=== PATIENT | male | born 1970 | race Caucasian/White ===

== ENCOUNTER 2024-10-15 08:21 | Outpatient (CLI) | payer OTHER, SELFPAY ==
--- OUTSIDE RECORDS SUMMARY | 2024-10-15 08:28 | XMS_ITS | Encounter Summary ---
Author Organization [facility] Healthcare Address [address] [place] [address] Care Team Providers Care Demonstrator Sewing Techniques Name Role Phone Chan Negrete MD Primary Care Provider [phone] Marion Chowdhury MD Unavailable [phone] Damon Dhaliwal MD Unavailable [phone] August Bernardo MD Unavailable [phone] Valeri Middleton NP Unavailable [phone] Encounter Details Date Type Department Care Team (Late st Contact Info) Description 06/28/2022 O[facility] Advanced Medicine Radiation Oncology [address] [facility] [place] [address] Damon Dhaliwal MD [address] DEPT RADIATION ONCOLOGY [place], [place] [address] Social History Tobacco Use Types Packs/Day Years Used Date Smoking Tobacco: Former Cigarettes 0.3 42 0 03/1976 - 03/2018 Smokeless Tobacco: Never Humiliation, Afraid, Rape, and Kick questionnair e Answer Date Recorded Within the last year, have y ou been afraid of your partner or ex-partner? No 04/07/2022 Within the last year, have y ou been humiliated or emotionally abused in other ways by your partner or ex-partner? No Within the last year, have y ou been kicked, hit, slapped, or otherwise physically hurt by your partner or ex-partner? No 04/07/2022 Within the last year, have y ou been raped or forced to have any kind of sexual activity by your partner or ex-partner? No 04/07/2022 Social Connection and Isolation Panel Answer Date Recorded In a typical week, how many times do you talk on the phone with family, friends, or neighbors? More than three times a week 04/07/2022 How often do you get togethe r with friends or relatives? Once a week 04/07/2022 How often do you attend chur or episcopal services? Never 04/07/2022 Do you belong to any clubs o r organizations such as episcopalian groups, unions, fraternal or athletic groups, or school groups? No 04/07/2022 How often do you attend meet ings of the clubs or organizations you belong to? Never 04/07/2022 Are you , , di vorced, , never , or living with a partner? 04/07/2022 AUDIT-C Answer Date Recorded Q1: How often do you have a drink containing alcohol? Never 04/07/2022 Q2: How many drinks containi ng alcohol do you have on a typical day when you are drinking? Patient does not drink Q3: How often do you have si x or more drinks on one occasion? Never 04/07/2022 Overall Financial Resource Strain (CARDIA) Answe r Date Recorded How hard is it for you to pa y for the very basics like food, housing, medical care, and heating? Not hard at all 04/07/2022 [facility] - Occupational Stress Questionnaire Answer Date Recorded Do you feel stress - tense, restless, nervous, or anxious, or unable to sleep at night because your mind is troubled all the time - these days? Only a little 04/07/2022 Exercise Vital Sign Answer Date Recorde d On average, how many days pe r week do you engage in moderate to strenuous exercise (like a brisk walk)? 0 days 04/07/2022 On average, how many minutes do you engage in exercise at this level? 0 min 04/07/2022 Hunger Vital Sign Answer Date Recorded Within the past 12 months, y ou worried that your food would run out before you got the money to buy more. Never true 04/07/19 23 Within the past 12 months, t he food you bought just didn't last and you didn't have money to get more. Never true 04/07/2022 PRAPARE - Transportation Answer Date Re corded In the past 12 months, has l ack of transportation kept you from medical appointments or from getting medications? No 03/2022 In the past 12 months, has l ack of transportation kept you from meetings, work, or from getting things needed for daily living? No 04/07/2022 Education Answer Date Recorded What is the highest level of school you have completed or the highest degree you have received? 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 Not on file Not on file documented as of this encounter Plan of Treatment Not on file documented as of this encounter Visit Diagnoses Not on filedocumented in this encounter Care Teams Demonstrator Sewing Techniques Relationship Specialty Start Date End Date Chan Negrete MD PCP - General Family Medicine 01/08/22 Marion Chowdhury MD Medical Oncologist/Marble Setter Helper Medical Oncology 02/15/22 Damon Dhaliwal MD Radiation Oncologist Radiation Oncology 04/07/22 August Bernardo MD [address] [facility] [address] [place] [address] Radiation Oncologist Radiation Oncology 07/01/22 Valeri Middleton NP [address] [place] [address] Nurse Practitioner Nurse Practitioner 11/11/22 documented as of this encounter
--- OUTSIDE RECORDS SUMMARY | 2024-10-15 08:28 | XMS_ITS | Encounter Summary ---
Author Organization [facility] Address [address] [place] [address] Care Team Providers Care Repertoire Manager Name Role Phone Sacha Chaves MD Primary Care Provider [phone] Chan Negrete MD Primary Care Provider [phone] Encounter Details Date Type Department Care Team (Late st Contact Info) Description 03/21/2020 Prep for Procedure [facility] Pre-[place] [address] Kip Payne MD [address] [place], [place] [id number] Social History Tobacco Use Types Packs/Day Years Used Date Smoking Tobacco: Former Cigarettes 0.5 1 1 03/18/2018 - 01/17/2020 Smokeless Tobacco: Never Alcohol Use Standard Drinks/Week Comments Yes 23.3 (1 standard drink = 0.6 oz pure alcohol) Sex and Gender Information Value Date Recorded Sex Assigned at Not on file Legal Sex Male 9:51 PM VETERINARY PHARMACOLOGIST Gender Identity Male 04/03/2021 8:46 AM VETERINARY PHARMACOLOGIST Sexual Orientation Not on file COVID-19 Exposure Response Date Recorded In the last month, have you been in contact with someone who was confirmed or suspected to have Coronavirus / COVID-19? No / Unsure 03/24/2020 5:39 AM VETERINARY PHARMACOLOGIST documented as of this encounter Functional Status documented as of this encounter Mental Status * Question Answer Entry Date Author Status Because of a physical, mental, or emotional condition, do you have serious difficulty concentrating, remembering, or making decisions? No 03/24/2020 4:00 PM VETERINARY PHARMACOLOGIST Haydee Tony RN Active documented in this encounter Plan of Treatment Not on file documented as of this encounter Results * PRE-SURGICAL/PRE-PROCEDURE CORONAVIRUS (COVID 19) (03/21/2020 11:03 AM VETERINARY PHARMACOLOGIST) CORONAVIRUS SARS COV 2 PCR (RESP) NOT DETECTED NOT DETECTED 03/22/2020 12:36 PM VETERINARY PHARMACOLOGIST [facility] Comment: A Not Detected (negative) test result for this test means that SARS- CoV-2 RNA was not present in the specimen above the limit of detection. A negative result does not rule out the possibility of COVID-19 and should not be used as the sole basis for treatment or patient management decisions. If COVID-19 is still suspected, based on exposure history together with other clinical findings, re-testing should be considered in consultation with public health authorities. Laboratory test results should always be considered in the context of clinical observations and epidemiological data in making a final diagnosis and patient management decisions. Please review the Fact Sheets and FDA authorized labeling available for health care providers and patients using the following websites: https://[email or web address] [email or web address]/home/Covid-19/HCP/NAAT/fact-sheet2 https://www.Pharmacy [email or web address]/home/Covid-19/Patients/NAAT/ fact-sheet2 This test has been authorized by the FDA under an Emergency Use Authorization (EUA) for use by authorized laboratories. Due to the current public health emergency, [facility] is receiving a high volume of samples from a wide variety of swabs and media for COVID-19 testing. In order to serve patients during this public health crisis, samples from appropriate clinical sources are being tested. Negative test results derived from specimens received in non-commercially manufactured viral collection and transport media, or in media and sample collection kits not yet authorized by FDA for COVID-19 testing should be cautiously evaluated and the patient potentially subjected to extra precautions such as additional clinical monitoring, including collection of an additional specimen. Methodology: Nucleic Acid Amplification Test (NAAT) includes RT-PCR or TMA Additional information about COVID-19 can be found at the [facility] website: [email or web address].com.InMyShow/Covid19. Test performed at [facility] [address] [place] [address] Director: ULI WYNNE DO,MPH FIRST TEST NO 03/21/2020 11:02 AM VETERINARY PHARMACOLOGIST [facility] EMPLOYED IN HEALTHCARE NO 03/21/2020 11:02 AM VETERINARY PHARMACOLOGIST [facility] SYMPTOMATIC DEFINED BY CDC NO 03/21/2020 11:02 AM VETERINARY PHARMACOLOGIST [facility] DATE OF SYMPTOM ONSET UNKNOWN 03/21/2020 11:05 AM VETERINARY PHARMACOLOGIST [facility] HOSPITALIZATION STATUS NO 03/21/2020 11:02 AM VETERINARY PHARMACOLOGIST [facility] PATIENT IN ICU NO 03/21/2020 11:02 AM VETERINARY PHARMACOLOGIST [facility] RESIDENT OF [facility] NO 03/21/2020 11:02 AM VETERINARY PHARMACOLOGIST [facility] NOT 03/21/2020 11:05 AM VETERINARY PHARMACOLOGIST [facility] PATIENT'S RACE WHITE OR 03/21/2020 11:02 AM VETERINARY PHARMACOLOGIST [facility] ETHNICITY NONHISPANIC 03/21/2020 11:02 AM VETERINARY PHARMACOLOGIST [facility] SOURCE (QST) NASOPHARYNGEAL SWAB 03/21/2020 11:02 AM VETERINARY PHARMACOLOGIST [facility] NASOPHARYNGEAL SWAB / Unknown 03/21/2020 11:03 AM VETERINARY PHARMACOLOGIST Kip Payne MD MICROBIOLOGY - GENERAL ORDERABLE S Final Result [facility] [place] [id number], [facility] [address] [place] [address], documented in this encounter Visit Diagnoses Diagnosis Preoperative testing- Primary Preoperative examination, unspecified documented in this encounter Additional Health Concerns Infection Onset Date Last Indicated Resolved Time COVID-19 Rule Out 03/21/2020 03/21/2020 03/22/2020 12:37 PM VETERINARY PHARMACOLOGIST COVID-19 Rule Out 03/27/2020 03/27/2020 03/27/2020 4:36 PM VETERINARY PHARMACOLOGIST COVID-19 Rule Out 03/29/2020 03/29/2020 03/29/2020 2:14 PM VETERINARY PHARMACOLOGIST documented as of this encounter Care Teams Repertoire Manager Relationship Specialty Start Date End Date Sacha Chaves MD [address] [place] [phone] PCP - General FAMILY PRACTICE 12/04/19 06/22/20 Chan Negrete MD [address] [place] [phone] PCP - General FAMILY PRACTICE 06/23/20 documented as of this encounter
--- OUTSIDE RECORDS SUMMARY | 2024-10-15 08:28 | XMS_ITS | Clinical Summary ---
Author Organization [facility] Address [address] [place] [address] Care Team Providers Care Business Development Consultant Name Role Phone Chan Negrete MD Primary Care Provider [phone] Marion Chowdhury MD Unavailable [phone] August Bernardo MD Unavailable [phone] Valeri Middleton NP Unavailable [phone] Allergies No known active allergies Medications simvastatin (ZOCOR) 40 mg tablet Take 40 mg by mouth daily 0 Active escitalopram (LEXAPRO) 20 mg tablet Take 20 mg by mouth daily 0 Active aspirin 81 mg enteric coated tablet Take 81 mg by mouth daily Active tadalafiL (CIALIS) 5 mg tablet Take 5 mg by mouth daily as needed for erectile dysfunction Active Active Problems Problem Noted Date Diagnosed Date Encounter for follow-up surveillance of prostate cancer 11/11/2022 Anxiety and depression 02/14/2022 Hyperlipidemia 02/14/2022 Hypertension 02/14/2022 Prostate cancer 02/04/2022 Cancer Staging:Clinical stage from 01/01/2020:Stage IIC(cT1c, cN0, cM0, PSA: 5, Grade Group: 3) - Signed by Baljinder Avalos MD on 04/02/2022 Pathologic stage from 03/24/2020:Stage IIC(pT2, pN0, cM0, PSA: 4, Grade Group: 3) - Signed by Baljinder Avalos MD on 04/02/2022 Surgical History Surgery Date Site/Laterality Comments PROSTATECTOMY Medical History Medical History Date Comments Hypercholesteremia Sleep apnea Family History Medical History Relation Name Comments Colon cancer Father Lymphoma Father Lung cancer Mother Prostate cancer Paternal cousin Relation Name Status Comments Father Mother Paternal cousin Alive Social History Tobacco Use Types Packs/Day Years Used Date Smoking Tobacco: Former Cigarettes 0.3 42 0 03/1976 - 03/2018 Smokeless Tobacco: Never Tobacco Cessation:Counseling Given: Not Answered Humiliation, Afraid, Rape, and Kick questionnair e [...] How often do you attend chur or zoroastrian services? Never 04/07/2022 Do you belong to any clubs o r organizations such as evangelical groups, unions, fraternal or athletic groups, or [...] and heating? 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 Not on file Not on file Obstetrics History Last Filed Vital Signs Vital Sign Reading Time Taken Comments Blood Pressure 131/74 05/05/2022 12:45 PM RETIREMENT CONSULTANT Pulse 38 05/05/2022 12:45 PM RETIREMENT CONSULTANT Temperature 36.7 C (98.1 F) 04/07/2022 1:07 PM RETIREMENT CONSULTANT Respiratory Rate 16 04/07/2022 1:07 PM RETIREMENT CONSULTANT Oxygen Saturation 98% 05/05/2022 12:45 PM RETIREMENT CONSULTANT Inhaled Oxygen Concentration - - Weight 111.4 kg (245 lb 8 oz) 06/26/2024 1:58 PM CDT Height 170.3 cm (5' 7.05) 06/26/2024 1:58 PM CD T Body Mass Index 38.4 06/26/2024 1:58 PM CDT Plan of Treatment Health Maintenance Due Date Last Done Comments Colon Cancer Screening-Colonoscopy 1968 Depression Screening 1968 Hepatitis C Screening 1968 Hepatitis B Screening 1986 Regular Well Visit/Exam 18-64 1986 Zoster Vaccine (1 of 2) 2018 Covid-19 Vaccine (2 - 2023-2 5 season) 2023 05/23/2020 Prostate Cancer Screening-PSA 02/16/2024 02/15/2022 Influenza Vaccine (#1) 2024 3, 12/04/2010 DTaP/Tdap/Td Vaccine (2 - Td or Tdap) 12/22/2024 12/22/2014 Pneumococcal vaccine <65 Aged Out No longer eligible based on patient's age to complete this topic Procedures Procedure Name Priority Date/Time Associated Diagnosis Comments PSA DIAGNOSTIC Routine 02/15/2022 2:23 PM RETIREMENT CONSULTANT Prostate cancer (HCC) from Last 3 Months or Most Recently Relevant to Health Maintenance Results * PSA diagnostic (02/15/2022 2:23 PM RETIREMENT CONSULTANT) PSA-Total 0.51 <=3.90 ng/mL [facility] Comment: Interpretive Data AGE SEX REFERENCE INTERVAL 0 minutes-150 years Female None 0 minutes-49 years Male None 50-59 years Male 0-3.90 60-69 years Male 0-5.40 70-79 years Male 0-6.20 80-150 years Male 0-6.20 The Hansel PSA Total assay procedure was used. Results from different manufacturers or methods may not be comparable. Serial testing should be performed using the same method. Current interpretive data last revised 21. Blood 02/15/2022 2:23 PM RETIREMENT CONSULTANT 02/15/2022 2:49 PM RETIREMENT CONSULTANT us Marion Chowdhury MD LAB BLOOD ORDERABLES F inal Result [facility] Department of [place] [address] from Last 3 Months or Most Recently Relevant to Health Maintenance Insurance [employer] Care Teams Business Development Consultant Relationship Specialty Start Date End Date Chan Negrete MD PCP - General Family Medicine 01/08/22 Marion Chowdhury MD Medical Oncologist/Other Sports Coach Or Instructor Medical Oncology 02/15/22 August Bernardo MD [address] [place] [address] Radiation Oncologist Radiation Oncology 07/01/22 Valeri Middleton NP [address] [place] [address] Nurse Practitioner Nurse Practitioner 11/11/22
--- OUTSIDE RECORDS SUMMARY | 2024-10-15 08:28 | XMS_ITS ---
Author Organization [facility] Address [address] [place] [address] Care Team Providers Care Composite Engineer Name Role Phone Chan Negrete MD Primary Care Provider [phone] Marion Chowdhury MD Unavailable [phone] August Bernardo MD Unavailable [phone] Valeri Middleton NP Unavailable [phone] Active Problems Problem Noted Date Diagnosed Date [...] Signed by Baljinder Avalos MD on 04/02/2022 Current Treatment and Therapy Plans Eligard Injection - 45 mg every 24 weeks* Plan Start Date:04/16/2022 Plan Provider:Damon Dhaliwal MD Linked Problems Prostate cancer (HCC) Treatment Medications leuprolide (ELIGARD) Past Treatment and Therapy Plans No past plan information found. Radiation Treatments * Course C1 PROSTATE_NODE 05/19/2022 - 07/08/2022 Treatment Period Energy Fraction Dose Fractions Total Dose Plans Planned Prostate_VMAT 06/23/2022 - 07/08/2022 180 12 / 2,160 PROST_NODES 05/19/2022 - 06/22/2022 180 4,500 Reference Points Delivered [id number] 06/23/2022 - 07/08/2022 2,160 PROSTATE 05/19/2022 - 06/22/2022 4,500
--- OUTSIDE RECORDS SUMMARY | 2024-10-15 08:28 | XMS_ITS | Clinical Summary ---
Author Organization [facility] Address [address] [place] [address] Care Team Providers Care Titrator Name Role Phone Chan Negrete MD Primary Care Provider [phone] Allergies No known active allergies Medications simvastatin 40 MG tablet Take 40 mg by mouth daily. 12/11/2019 Active escitalopram 20 MG tablet Take 20 mg by mouth daily. 12/11/2019 Active lisinopril 10 MG tablet Take 10 mg by mouth daily. 02/04/2020 Active aspirin EC (ASPIRIN EC) 81 MG tablet Take 81 mg by mouth daily. Active Active Problems Problem Noted Date Diagnosed Date Postoperative abdominal pain with fever 04/01/19 21 S/P prostatectomy 03/29/2020 Liver lesion 03/29/2020 Malignant neoplasm of prostate ([facility]/HCC) 03/24/2020 Prostate cancer ([facility]) Overview (03/29/2020): DIAGNOSED JAN [address] ZARAGOZA Hypertension Hyperlipidemia Anxiety and depression Resolved Problems Problem Noted Date Diagnosed Date Resolved Date Post-operative infection 03/29/2020 Leukocytosis 03/27/2020 04/01/2020 Family History Medical History Relation Comments Heart Brother No Known Problems Daughter 1 No Known Problems Daughter 2 No Known Problems Daughter 3 Cancer Father colon and brain stem Heart Father Cancer Mother lung Heart Mother No Known Problems Sister Relation Status Comments Brother Daughter 1 Alive Daughter 2 Alive Daughter 3 Alive Father Mother Sister Alive Social History Tobacco Use Types Packs/Day Years Used Date Smoking Tobacco: Former Cigarettes 0.5 1 1 03/18/2018 - 01/17/2020 Smokeless Tobacco: Never Alcohol Use Standard Drinks/Week Comments Yes 23.3 (1 standard drink = 0.6 oz pure alcohol) Sex and Gender Information Value Date Recorded Sex Assigned at Not on file Legal Sex Male 9:51 PM CIVIL DIVISION COMMANDER DEPUTY SHERIFF Gender Identity Male 04/03/2021 8:46 AM CIVIL DIVISION COMMANDER DEPUTY SHERIFF Sexual Orientation Not on file Last Filed Vital Signs Vital Sign Reading Time Taken Comments Blood Pressure 131/73 04/01/2020 3:47 AM CIVIL DIVISION COMMANDER DEPUTY SHERIFF Pulse 70 04/01/2020 3:47 AM CIVIL DIVISION COMMANDER DEPUTY SHERIFF Temperature 37 C (98.6 F) 04/01/2020 3:47 AM CIVIL DIVISION COMMANDER DEPUTY SHERIFF Respiratory Rate 16 04/01/2020 3:47 AM CIVIL DIVISION COMMANDER DEPUTY SHERIFF Oxygen Saturation 99% 04/01/2020 3:47 AM CIVIL DIVISION COMMANDER DEPUTY SHERIFF Inhaled Oxygen Concentration - - Weight 95.3 kg (210 lb) 03/27/2020 12:59 PM CIVIL DIVISION COMMANDER DEPUTY SHERIFF Height 180.3 cm (5' 11) 03/27/2020 12:59 PM CIVIL DIVISION COMMANDER DEPUTY SHERIFF Body Mass Index 29.29 03/27/2020 12:59 PM CIVIL DIVISION COMMANDER DEPUTY SHERIFF Plan of Treatment Health Maintenance Due Date Last Done Comments Annual Physical 1971 Hepatitis C 1986 DTaP, Tdap and Td Vaccines ( 1 - Tdap) 1987 Hepatitis B Vaccines (1 of 3 - 19+ 3-dose series) 1987 Pneumococcal Vaccine: 50+ Years (1 of 1 - PCV) 2018 Zoster Vaccines (1 of 2) 2018 COVID-19 Vaccine (1 - 2023-2 5 season) 2023 Colorectal Cancer Screening Colonoscopy (10 Years) 02/13/2030 02/14/2020, 02/14/2020 Meningococcal B Vaccine Aged Out No l onger eligible based on patient's age to complete this topic Meningococcal Vaccine Aged Out No tyrell jessica eligible based on patient's age to complete this topic RSV Immunizations Under 20 Months Aged Out No longer eligible b ased on patient's age to complete this topic Procedures Procedure Name Priority Date/Time Associated Diagnosis Comments COLONOSCOPY Routine 02/14/2020 11:07 AM CIVIL DIVISION COMMANDER DEPUTY SHERIFF from Last 3 Months or Most Recently Relevant to Health Maintenance Results * Colonoscopy (02/14/2020 11:07 AM CIVIL DIVISION COMMANDER DEPUTY SHERIFF) Hector Copeland MD GI PROCEDURE ORDERABLES Final Re sult from Last 3 Months or Most Recently Relevant to Health Maintenance Insurance [facility] Advance Directives Documents on File Type Date Recorded Patient Statistical Clerk Expl anation Advance Directives and Living Will 03/27/2020 10:00 AM 03-25-2020 signed POA for HC * Full Code (Latest Code Status on File) Date Activated Date Inactivated Comments 03/27/2020 5:25 PM 04/01/2020 1:55 PM * Full Code Date Activated Date Inactivated Comments 03/24/2020 3:41 PM 03/25/2020 3:34 PM Care Teams Titrator Relationship Specialty Start Date End Date Chan Negrete MD [address] [place] [phone] PCP - General FAMILY PRACTICE 06/23/20
--- OUTSIDE RECORDS SUMMARY | 2024-10-15 08:28 | XMS_ITS | Encounter Summary ---
Author Organization [facility] Address [address] [place] [address] Care Team Providers Care Netbackup Admin Name Role Phone Sacha Chaves MD Primary Care Provider [phone] Chan Negrete MD Primary Care Provider [phone] Encounter Details Date Type Department Care Team (Late st Contact Info) Description 08/12/2018 Abstract [facility] CONVERSION [address] [place] [address] , Generic Conversion, Social History Tobacco Use Types Packs/Day Years Used Date Smoking Tobacco: Never Assessed Sex and Gender Information Value Date Recorded Sex Assigned at Not on file Legal Sex Male 9:51 PM EXTERNAL GRINDER TENDER Gender Identity Male 04/03/2021 8:46 AM EXTERNAL GRINDER TENDER Sexual Orientation Not on file documented as of this encounter Plan of Treatment Not on file documented as of this encounter Visit Diagnoses Not on filedocumented in this encounter Additional Health Concerns Infection Onset Date Last Indicated Resolved Time COVID-19 Rule Out 02/11/2020 02/11/2020 02/12/2020 7:27 PM EXTERNAL GRINDER TENDER COVID-19 Rule Out 03/21/2020 03/21/2020 03/22/2020 12:37 PM EXTERNAL GRINDER TENDER COVID-19 Rule Out 03/27/2020 03/27/2020 03/27/2020 4:36 PM EXTERNAL GRINDER TENDER COVID-19 Rule Out 03/29/2020 03/29/2020 03/29/2020 2:14 PM EXTERNAL GRINDER TENDER documented as of this encounter Care Teams Netbackup Admin Relationship Specialty Start Date End Date Sacha Chaves MD [address] [place] [address] PCP - General FAMILY PRACTICE 12/04/19 06/22/20 Chan Negrete MD [address] [place] [phone] PCP - General FAMILY PRACTICE 06/23/20 documented as of this encounter
--- OUTSIDE RECORDS SUMMARY | 2024-10-15 08:28 | XMS_ITS | Encounter Summary ---
Author Organization [facility] Address [address] [place] [address] Phone Care Team Providers Care Manager Ct Name Role Phone Chan Negrete MD Primary Care Provider Marion Chowdhury MD Unavailable [phone] Damon Dhaliwal MD Unavailable [phone] August Bernardo MD Unavailable [phone] Valeri Middleton NP Unavailable [phone] Encounter Details Date Type Department Care Team (Latest Contact Info) Description 03/22/2022 Orders Only [facility] Scanning, Provider Social History Tobacco Use Types Packs/Day Years Used Date Smoking Tobacco: Former Cigarettes 0.3 42 0 03/1976 - 03/2018 Smokeless Tobacco: Never Sex and Gender Information Value Date Recorded Sex Assigned at Not on file Legal Sex Male 9:25 AM CDT Gender Identity Not on file Sexual Orientation Not on file documented as of this encounter Plan of Treatment Not on file documented as of this encounter Procedures Procedure Name Priority Date/Time Associated Diagnosis Comments SCAN - LABS 03/22/2022 documented in this encounter Results * SCAN - LABS (03/22/2022) us Provider Scanning Final Result documented in this encounter Visit Diagnoses Not on filedocumented in this encounter Care Teams Manager Ct Relationship Specialty Start Date End Date Chan Negrete MD PCP - General Family Medicine 01/08/22 Marion Chowdhury MD Medical Oncologist/Tool Machine Set Up Operator Medical Oncology 02/15/22 Damon Dhaliwal MD Radiation Oncologist Radiation Oncology 04/07/22 August Bernardo MD [address] [place] [address] Radiation Oncologist Radiation Oncology 07/01/22 Valeri Middleton NP [address] [place] [address] Nurse Practitioner Nurse Practitioner 11/11/22 documented as of this encounter
--- NOTE | 2024-10-25 11:23 | WPDHOLTEREM ---
Holter/Event Monitor Holter/Event Monitor Date of procedure: 10/15/24 Holter/Event Procedure: 3-7 Day Holter Monitor Indications: Bradycardia Conclusion: 1. 3 days holter monitor on 10/15/24. 2. Underlying rhythm is sinus rhythm. HR range 30-88 bpm; average HR 43 bpm. HR at 30 bpm was on 10/16/24 at 4:11 am. 3. There are rare premature supraventricular complexes and rare supraventricular couplets. No supraventricular tachycardia. 4. There are rare premature ventricular complexes. No ventricular tachycardia. 5. No significant pauses greater than 3 seconds. 6. No symptoms available for correlation.
== END 2024-10-15 08:22 | disposition home or self-care (01) ==
PROVIDERS: PCP Physician Assistant; Visit Provider Physician Assistant
DX: R00.1 Bradycardia, unspecified (principal); R94.39 Abnormal result of other cardiovascular function study
CPT/HCPCS: 93242

== ENCOUNTER 2025-02-23 09:20 | Inpatient (IN) | payer OTHER, SELFPAY ==
[2025-02-23] VITALS (11 sets, daily range): BP systolic 118–166; BP diastolic 58–87; PULSE 49–62; RESP 12–22; TEMP 36.5–37.9; O2SAT 97–100; BMI 27.3
--- NOTE | ~2025-02-23 | CT_ITS ---
CT ABDOMEN AND PELVIS WITHOUT CONTRAST Clinical History: Kidney stone Comparison: None Technique: Unenhanced axial images lung bases to symphysis pubis Coronal, sagittal reformats CT images acquired with automatic exposure control for dose reduction DLP: 252 mGy-cm Findings: Without intravenous contrast, sensitivity for detecting visceral parenchymal abnormalities decreased. Lung bases: Clear. Visualized heart and pericardium: Unremarkable. Liver: Unremarkable. Gallbladder: Unremarkable. Spleen: Unremarkable. Pancreas: Unremarkable. Adrenal glands: Unremarkable. Kidneys: Right kidney- hydronephrosis. No renal stones. Left kidney- hydronephrosis. Tiny stone. Distal esophagus/stomach: Unremarkable. Small bowel loops: Normal caliber and wall thickness. Colon: A few diverticula. Normal caliber and wall thickness. Normal RLQ appendix. Nodes: No enlarged nodes. Peritoneum: No ascites. No free intraperitoneal air. Urinary bladder: Distended. Prostate: Removed. Bones: No acute bony abnormality. Soft tissues: Unremarkable. Unopacified abdominal aorta: No aneurysmal dilatation. IMPRESSION: 1. Distended urinary bladder with consequent bilateral hydronephrosis. Reviewed, dictated and finalized at location R. INSPECTOR
--- OUTSIDE RECORDS SUMMARY | 2025-02-23 09:22 | XMS_ITS | Encounter Summary ---
Author Organization [facility] Address [address] [place] [address] Phone Care Team Providers Care Engineering Administrator Name Role Phone Chan Negrete MD Primary Care Provider Marion Chowdhury MD Unavailable [phone] Damon Dhaliwal MD Unavailable [phone] August Bernardo MD Unavailable [phone] Valeri Middleton NP Unavailable [phone] Encounter Details Date Type Department Care Team [...] on filedocumented in this encounter Care Teams Engineering Administrator Relationship Specialty Start Date End Date Chan Negrete MD PCP - General Family Medicine 01/08/22 Marion Chowdhury MD Medical Oncologist/Concession Worker Medical Oncology 02/15/22 Damon Dhaliwal MD Radiation Oncologist Radiation Oncology 04/07/22 August Bernardo MD [address] [place] [address] Radiation Oncologist Radiation Oncology 07/01/22 Valeri Middleton NP [address] [place] [address] Nurse Practitioner Nurse Practitioner 11/11/22 documented as of this encounter
--- OUTSIDE RECORDS SUMMARY | 2025-02-23 09:22 | XMS_ITS | Encounter Summary ---
Author Organization [facility] Address [address] [place] [address] Care Team Providers Care Food Analyst Name Role Phone Chan Negrete MD Primary Care Provider [phone] Marion Chowdhury MD Unavailable [phone] Damon Dhaliwal MD Unavailable [phone] August Bernardo MD Unavailable [phone] Valeri Middleton NP Unavailable [phone] Encounter Details Date Type Department Care Team (Late st Contact Info) Description 06/28/2022 [facility] Advanced Medicine Radiation Oncology [address] [facility] [place] [address] Damon Dhaliwal MD [address] DEPT RADIATION ONCOLOGY [place], [place] [address] Social History Tobacco Use Types Packs/Day Years [...] How often do you attend chur or amish services? Never 04/07/2022 Do you belong to any clubs o r organizations such as cheondoism groups, unions, fraternal or athletic groups, or [...] and heating? 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 Not on file Not on file documented as of this encounter Plan of Treatment Not on file documented as of this encounter Visit Diagnoses Not on filedocumented in this encounter Care Teams Food Analyst Relationship Specialty Start Date End Date Chan Negrete MD PCP - General Family Medicine 01/08/22 Marion Chowdhury MD Medical Oncologist/Janitor Head Medical Oncology 02/15/22 Damon Dhaliwal MD Radiation Oncologist Radiation Oncology 04/07/22 August Bernardo MD [address] [facility] [address] [place] [address] Radiation Oncologist Radiation Oncology 07/01/22 Valeri Middleton NP [address] [place] [address] Nurse Practitioner Nurse Practitioner 11/11/22 documented as of this encounter
--- OUTSIDE RECORDS SUMMARY | 2025-02-23 09:23 | XMS_ITS ---
Author Organization Unknown Address [address] [place], [place] [id number] Phone Care Team Providers Care Social Work Lecturer Name Role Phone BIENVENIDO BENJAMIN Attending Unavailable NO PCP Primary Unavailable Social History Type Status Start Date End Date Code Code Syst em Sex Male Hospital Discharge Instructions Should you have any questions prior to discharge, please contact a member of your healthcare team. If you have left the hospital and have any questions, please contact your primary care physician. Reason For Referral No Data Found Plan of Treatment No Data Found Encounters Encounter Diagnosis Start Date Code Code Sys tem Bradycardia, unspecified 11/27/2024 [facility] Personal Care Team Section
--- OUTSIDE RECORDS SUMMARY | 2025-02-23 09:23 | XMS_ITS ---
Author Organization [facility] Address [address] [place] [address] Care Team Providers Care Ski Maker Wood Name Role Phone Chan Negrete MD Primary Care Provider [phone] Marion Chowdhury MD Unavailable [phone] August Bernardo MD Unavailable [phone] Valeri Middleton NP Unavailable [phone] Active Problems Problem Noted Date Diagnosed Date [...]
--- OUTSIDE RECORDS SUMMARY | 2025-02-23 09:23 | XMS_ITS | Clinical Summary ---
Author Organization [facility] Address [address] [place] [address] Care Team Providers Care It Desktop Support Specialist Name Role Phone Chan Negrete MD Primary Care Provider [phone] Marion Chowdhury MD Unavailable [phone] August Bernardo MD Unavailable [phone] Valeri Middleton NP Unavailable [phone] Allergies No known active allergies Medications simvastatin (ZOCOR) 40 mg tablet Take 40 mg by mouth daily 0 Active escitalopram (LEXAPRO) 20 mg tablet Take 20 mg by mouth daily 0 Active aspirin 81 mg enteric coated tablet Take 81 mg by mouth daily Active tadalafiL (CIALIS) 5 mg tablet Take 1 tablet (5 mg total) by mouth daily as needed for erectile dysfunction 90 tablet 3 5 Active tadalafiL (ADCIRCA) 10 mg tablet Take 1 tablet (10 mg total) by mouth daily as needed for erectile dysfunction 90 tablet 1 5 Active Active Problems Problem Noted Date Diagnosed [...] Signed by Baljinder Avalos MD on 04/02/2022 Encounters Date Type Department Care Team Description 01/02/2025 2:20 PM CDT Office Visit [facility] Advanced Medicine Radiation Oncology [address] [facility] [place] [address] Valeri Middleton NP Prostate cancer (HCC) (Primary Dx); Encounter for follow-up surveillance of prostate cancer from Last 3 Months Surgical History Surgery Date Site/Laterality Comments PROSTATECTOMY [...] 03/2018 Smokeless Tobacco: Never Tobacco Cessation:Counseling Given: No Humiliation, Afraid, Rape, and Kick questionnair e [...] 04/07/2022 How often do you attend chur ch or sikhism services? Never 04/07/2022 Do you belong to any clubs o r organizations such as mu-ism groups, unions, fraternal or athletic groups, or [...] and heating? 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 on file Not on file Last Filed Vital Signs Vital Sign Reading Time Taken Comments Blood Pressure 131/74 05/05/2022 12:45 PM ROOF CEMENT AND PAINT MAKER HELPER Pulse 38 05/05/2022 12:45 PM ROOF CEMENT AND PAINT MAKER HELPER Temperature 36.7 C (98.1 F) 04/07/2022 1:07 PM ROOF CEMENT AND PAINT MAKER HELPER Respiratory Rate 16 04/07/2022 1:07 PM ROOF CEMENT AND PAINT MAKER HELPER Oxygen Saturation 98% 05/05/2022 12:45 PM ROOF CEMENT AND PAINT MAKER HELPER Inhaled Oxygen Concentration - - Weight 93 kg (205 lb) 01/02/2025 2:18 PM CDT Height 170.3 cm (5' 7.05) 01/02/2025 2:18 PM CD T Body Mass Index 32.06 01/02/2025 2:18 PM CDT Plan of Treatment Health Maintenance Due Date Last Done Comments Colon Cancer Screening-Colonoscopy 1968 Depression Screening 1968 Hepatitis C Screening 1968 Hepatitis B Screening 1986 Regular Well Visit/Exam 18-64 1986 Zoster Vaccine (1 of 2) 2018 Prostate Cancer Screening-PSA 02/16/2024 02/15/2022 Covid-19 Vaccine (2 - 2024-2 6 season) 2024 05/23/2020 Influenza Vaccine (#1) 2024 3, 12/04/2010 DTaP/Tdap/Td Vaccine (2 - Td or Tdap) 12/22/2024 12/22/2014 Pneumococcal vaccine <65 Aged Out No longer eligible based on patient's age to complete this topic Procedures Procedure Name Priority Date/Time Associated Diagnosis Comments PSA DIAGNOSTIC Routine 02/15/2022 2:23 PM ROOF CEMENT AND PAINT MAKER HELPER Prostate cancer (HCC) from Last 3 Months or Most Recently Relevant to Health Maintenance Results * PSA diagnostic (02/15/2022 2:23 PM ROOF CEMENT AND PAINT MAKER HELPER) PSA-Total 0.51 <=3.90 ng/mL [facility] Comment: Interpretive Data AGE SEX REFERENCE INTERVAL [...] last revised 21. Blood 02/15/2022 2:23 PM ROOF CEMENT AND PAINT MAKER HELPER 02/15/2022 2:49 PM ROOF CEMENT AND PAINT MAKER HELPER us Marion Chowdhury MD LAB BLOOD ORDERABLES F inal Result [facility] Department [place] [address] from Last 3 Months or Most Recently Relevant to Health Maintenance [facility] [employer] Care Teams It Desktop Support Specialist Relationship Specialty Start Date End Date Chan Negrete MD PCP - General Family Medicine 01/08/22 Marion Chowdhury MD Medical Oncologist/Ropeman Medical Oncology 02/15/22 August Bernardo MD [address] [place] [address] Radiation Oncologist Radiation Oncology 07/01/22 Valeri Middleton NP [address] [place] [address] Nurse Practitioner Nurse Practitioner 11/11/22
--- NOTE | 2025-02-23 10:15 | ED_ITS ---
HPI - General Adult General Chief complaint: Urogenital-Male Stated complaint: bladder infection Time Seen by Provider: 02/23/25 10:14 Source: patient Mode of arrival: ambulatory Limitations: no limitations History of Present Illness HPI narrative: 54 years old white male came to the ED by private car from home with his complaining of frequent urination with burning sensation started 3 weeks ago associated with lower back pain. Finish a course of micro bed without improvement, started on Bactrim 3 days ago without improvement. Feeling hot intermittently with nausea. History of prostatic cancer status post surgery 2020, last radiation therapy 2 years ago. History of hyperlipidemia, anxiety and depression currently on baby aspirin. Related Data Allergies Allergy/AdvReac Type Severity Reaction Status Date / Time No Known Allergies Allergy Verified 02/23/25 09:42 Review of Systems 2 Review of Systems: All systems reviewed & are unremarkable except as noted in HPI and below Exam 2 Narrative: General appearance: Well-developed, well-nourished Skin: Normal color Head: Normocephalic, nontraumatic Eyes: Clear conjunctiva ENT: Oropharynx normal, ears normal, nose normal Neck: Supple, nontender Chest and respiratory: Airway patent, no respiratory distress, no accessory muscle use Heart: Regular rate/rhythm Abdomen: Soft, nontender, no organomegaly, quiet bowel sounds Vascular: Normal peripheral pulses, normal capillary refill. Musculoskeletal: Mild diffuse tenderness across the lower back, no bruises, no rash or swelling Neurologic: Alert and oriented ?3, PREMIX CONCRETE BATCHER is normal as tested, no gross motor deficit Course Consultations Urology: Time of Consult: 11:53 I have discussed the care of this patient with the following provider: DR HENLEY Vital Signs Vital signs: Vital Signs Temperature 36.6 C 02/23/25 09:35 Pulse Rate 62 02/23/25 09:35 Respiratory Rate 18 02/23/25 09:35 Blood Pressure 138/74 02/23/25 09:35 Pulse Oximetry 100 02/23/25 09:35 Oxygen Delivery Room Air 02/23/25 09:35 Temperature 36.6 C 02/23/25 09:35 Pulse Rate 49 L 02/23/25 10:57 Respiratory Rate 14 02/23/25 10:57 Blood Pressure 127/82 02/23/25 10:57 Pulse Oximetry 100 02/23/25 10:57 Oxygen Delivery Room Air 02/23/25 09:35 MDM MDM Narrative Medical decision making narrative: Patient presents with frequent urination for 3 weeks failed outpatient treatment time to Vital signs are stable Physical examination: Unremarkable Differential diagnosis urinary tract infection pyelonephritis, cystitis secondary to radiation, electrolyte imbalance, dehydration Blood workup today includes CBC, CMP, lipase showed creatinine 1.3 Urinalysis positive for infection CT abdomen and pelvis without contrast showed bilateral hydronephrosis and distended urinary bladder Diagnosis urinary tract infection, possible obstructive uropathy Admit to hospitalist Consult urologist Started on Rocephin in the ED RYAN CATHETER PLACED Differential Diagnosis Differential Diagnosis: As above Medical Records I have reviewed the following patient records and this information was taken into consideration when formulating the assessment and plan.: previous labs, previous ER visits and previous hospitalizations Lab Data [facility] Lab Attestation statement: I personally reviewed the patient's lab results. 02/23/25 10:54 02/23/25 10:54 Labs: Lab Results 02/23/25 02/23/25 Range/Units 10:22 10:54 WBC 10.0 (4.5-10.0) K/mm3 RBC 4.77 (4.6-6.20) M/mm3 Hgb 14.1 (14.0-18.0) g/dL Hct 44.1 (42.0-52.0) % MCV 92.5 (80-100) fl MCH 29.6 (26-34) pg MCHC 32.0 (32-36) g/dl RDW 13.1 (11.5-14.5) % Plt Count 266 (150-375) k/mm3 MPV 9.3 (7.4-10.4) fl Immature Gran % (Auto) 0.3 (0-0.5) % Neut % (Auto) 74.9 H (45.5-73.1) % Lymph % (Auto) 11.3 L (18.3-44.2) % [place] % (Auto) 12.2 H (2.6-8.5) % Eos % (Auto) 0.8 (0-4.4) % Baso % (Auto) 0.5 (0.2-1.2) % Lymph # (Auto) 1.12 (0.9-3.2) K/mm3 [place] # (Auto) 1.2 H (0.1-0.6) K/mm3 Eos # (Auto) 0.1 (0-0.3) K/mm3 Baso # (Auto) 0.1 (0.0-0.1) K/mm3 Abs Immat Gran (auto) 0.03 (0.00-0.031) K/mm3 Absolute Neuts (auto) 7.5 H (1.3-6.7) K/mm3 Absolute Nucleated RBC 0.000 (0.0-0.012) K/mm3 Nucleated RBC % 0.0 (0.0-0.2) % Sodium 138 (137-145) mmol/L Potassium 4.4 (3.4-5.0) mmol/L Chloride 104 (98-107) mmol/L Carbon Dioxide 27 (22-30) mmol/L Anion Gap 7 (4-12) mmol/L BUN 13 (9-20) mg/dL Creatinine 1.38 H (0.7-1.3) mg/dL Estim Creat Clear Calc 57 ml/min Estimated GFR 53 L (59 - ) Glucose 87 (65-110) mg/dL Calcium 9.2 (8.4-10.2) mg/dL Total Bilirubin 1.4 H (0.2-1.3) mg/dL AST 28 (17-59) U/L ALT 22 (6-50) U/L Alkaline Phosphatase 72 (38-126) U/L Total Protein 7.3 (6.3-8.2) g/dL Albumin 4.3 (3.5-5.1) g/dL Lipase 97 (23-300) U/L Urine Color Yellow (Yellow) Urine Appearance Turbid H (Clear) Urine pH 6.0 (5.0-9.0) Ur Specific [place] 1.010 (1.001-1.035) Urine Protein 1+ H (Negative) mg/dL Urine Glucose (UA) Negative (Negative) mg/dL Urine Ketones Negative (Negative) mg/dL Ur Blood (Man) 2+ H (Negative) Urine Nitrate Positive H (Negative) Urine Bilirubin Negative (Negative) Urine Urobilinogen 0.2 (<2.0) mg/dL Leukocyte Esterase Rfl 3+ H (Negative) VITO/UL Urine RBC 3-5 H (0-2) /hpf Urine WBC >100 H (0-3) /hpf Ur Squamous Epith Cells Moderate (Few) /hpf Urine Bacteria 1+ H /hpf Urine Casts 3-5 Imaging Data Radiologist's impression: ITS Impressions Abdomen/Pelvis CT 02/23/25 10:55 IMPRESSION: 1. Distended urinary bladder with consequent bilateral hydronephrosis. Critical Care Time Critical Care Time Critical Care Time: Yes (25) Time Type: Intermittent Initial evaluation, discuss w/ involved parties, attempting to gather old records: 10 minutes Documenting medical record: 5 minutes Review of results (EKG's, labs, imaging): 5 minutes Serial repeat bedside evaluation: 10 minutes Discussing case with multiple memebers of the care team and consultants: 5 minutes Total Critical Care Time: 35 Discharge Plan Discharge Clinical Impression: Urinary tract infection, Obstructed, uropathy Patient Disposition: Still a Patient Condition: Stable Additional Instructions: Admit to hospitalist Patient Language: Turkmen Follow-up/Referrals: Zac,TAYLER Mooney [Primary Care Provider]
[2025-02-23 10:42] LABS: Add Urine Microscopic? YES; Appearance Urine Turbid (Clear); Glucose Urine UA Negative (Negative); Leukocyte Esterase Ur 3+ LEU/UL (Negative); Nitrate Urine Positive (Negative); Specific Grav Ur 1.010 (1.001-1.035)
[2025-02-23 11:01] LABS: Hematocrit 44.1 % (42.0-52.0); Hemoglobin 14.1 g/dL (14.0-18.0); Immature Granulocyte Percent A 0.3 % (0-0.5); Lymphocytes Absolute Auto 1.12 K/mm3 (0.9-3.2); Mean Corpuscular HGB Conc 32.0 g/dl (32-36); Mean Corpuscular Hemoglobin 29.6 pg (26-34); Mean Corpuscular Volume 92.5 fl (80-100); Nucleated Red Blood Cells Absolute Auto 0.000 K/mm3 (0.0-0.012); Nucleated Red Blood Cells Perc 0.0 % (0.0-0.2); Platelet Count Result 266 k/mm3 (150-375); Red Blood Count 4.77 M/mm3 (4.6-6.20); White Blood Count 10.0 K/mm3 (4.5-10.0)
[2025-02-23 11:19] LABS: Alanine Aminotransferase 22 U/L (6-50); Albumin Level 4.3 g/dL (3.5-5.1); Alkaline Phosphatase 72 U/L (38-126); Anion Gap 7 mmol/L (4-12); Aspartate Amino Transferase 28 U/L (17-59); Bilirubin,Total 1.4 mg/dL (0.2-1.3); Blood Urea Nitrogen 13 mg/dL (9-20); Calcium 9.2 mg/dL (8.4-10.2); Carbon Dioxide 27 mmol/L (22-30); Chloride 104 mmol/L (98-107); Estimated CRCL calculation 57 ml/min; Estimated Glomerular Filt Rate 53; Glucose 87 mg/dL (65-110); Lipase 97 U/L (23-300); Potassium 4.4 mmol/L (3.4-5.0); Sodium 138 mmol/L (137-145); Total Protein 7.3 g/dL (6.3-8.2)
[2025-02-23] MEDS: cefTRIAXone 1 GM in SODIUM CHLORIDE 0.9% IV 50 ML 100 ML IVPB (12:05)
--- NOTE | 2025-02-23 12:42 | WPCEDHO ---
ED Hand Off Checklist All vitals saved: YES IV Site documented: YES All med administrations documented: YES Triage Note Triage Note Pt to ED with c/o possible kidney 02/23/25 09:35 stone and bladder infection. Pt saw his PCP on and was diagnosed with a bladder infection. Pt has taken 3 doses of bactirim antibiotic medication . Pt reports increased urgency and urination. Pt states Tuesday night he started having fever and lower back pain. Pt took 2 tylenol prior to arrival. Pt states he had urine cultures done and they came back positive for e. coli. Allergies No Known Allergies Allergy (Verified 02/23/25 09:42) Administered/Completed Medications Discontinued Medications Ceftriaxone Sodium 1 gm/ (Sodium Chloride) 50 mls @ 100 mls/hr IVPB ONCE STA Stop: 02/23/25 11:54 Last Infusion: 02/23/25 12:41 Dose: Infused Documented By: Admin: 02/23/25 12:05 Dose: 100 mls/hr Documented By: KODY Interventions/Assessments IV / Saline Lock, Insert Start: 02/23/25 10:16 Freq: STAT Status: Active Protocol: Document 02/23/25 12:05 CPN (Rec: 02/23/25 12:05 CPN [id number]) IV Assessment Peripheral Access Right Antecubital IV Catheter Access Initiated IV Insertion Date 02/23/25 IV Insertion Time 12:05 Catheter Gauge 18 IV Insertion 1 Attempts IV Site Assessment WNL IV Care and WNL Maintenance PA: Genitourinary Assessment Start: 02/23/25 09:25 Freq: Status: Active Protocol: Document 02/23/25 09:41 LOUO (Rec: 02/23/25 09:42 MCO [id number]) Assessment Genitourinary Burning,Dribbling,Flank Pain,Painful,Retention,Urgency Symptoms Voiding Method Toilet Urine Color Yellow Urine Cloudy Characteristics Last Vital Signs Temperature 98 F 02/23/25 09:35 Pulse Rate 60 02/23/25 12:08 Respiratory Rate 16 02/23/25 12:08 Pulse Oximetry 100 02/23/25 12:08 Blood Pressure 134/72 02/23/25 12:08 Blood Pressure Mean 92 02/23/25 12:08 Blood Pressure Position Sitting 02/23/25 12:08 Oxygen Delivery Room Air 02/23/25 09:35 Weight 88.8 kg 02/23/25 09:35 Last Result - Abnormals Only Neut % (Auto) 74.9 % (45.5-73.1) H 02/23/25 10:54 Lymph % (Auto) 11.3 % (18.3-44.2) L 02/23/25 10:54 [place] % (Auto) 12.2 % (2.6-8.5) H 02/23/25 10:54 [place] # (Auto) 1.2 K/mm3 (0.1-0.6) H 02/23/25 10:54 Absolute Neuts (auto) 7.5 K/mm3 (1.3-6.7) H 02/23/25 10:54 Creatinine 1.38 mg/dL (0.7-1.3) H 02/23/25 10:54 Estimated GFR 53 (59-) L 02/23/25 10:54 Total Bilirubin 1.4 mg/dL (0.2-1.3) H 02/23/25 10:54 Urine Appearance Turbid (Clear) H 02/23/25 10:22 Urine Protein 1+ mg/dL (Negative) H 02/23/25 10:22 Ur Blood (Man) 2+ (Negative) H 02/23/25 10:22 Urine Nitrate Positive (Negative) H 02/23/25 10:22 Leukocyte Esterase Rfl 3+ VITO/UL (Negative) H 02/23/25 10:22 Urine RBC 3-5 /hpf (0-2) H 02/23/25 10:22 Urine WBC >100 /hpf (0-3) H 02/23/25 10:22 Urine Bacteria 1+ /hpf H 02/23/25 10:22 Most Recent Suicide Severity Rating Suicide Severity Rating NO RISK INDICATED 02/23/25 09:35
--- NOTE | 2025-02-23 13:43 | PC.NURSE ---
FRANCINE Ocampo and this RN as well as FRANCINE Orozco attempted to place urinary catheter without success. EDP Dr. Tavera called Dr. Ag with urology to discuss. Urologist to place finch. FRANCINE Mann make aware and said ok to send patient to floor at this time.
--- NOTE | 2025-02-23 13:45 | PC.NURSE ---
Spoke to floor about pt update at this time, floor and pt aware of POC.
--- NOTE | 2025-02-23 14:05 | PC.NURSE ---
Urologist at bedside.
--- NOTE | 2025-02-23 14:44 | WPDURCON ---
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 with poor voiding efficiency and recurrenct uti's unsuccessful placement of finch in ER will place finch in OR (2) Urinary tract infection: Qualifiers: Hematuria presence: without hematuria Urinary tract infection type: acute cystitis Qualified Code(s): N30.00 - Acute cystitis without hematuria Code(s): N39.0 - Urinary tract infection, site not specified Status: Acute Urology Consult Note HPI Date Seen: 02/23/25 Requesting Physician: Kevin Quan MD Primary Care Provider: Vinicio Frank, TAYLER Consult Narrative Narrative: 54 y/o M with PMH of prostate cancer s/p robot prostatectom(2020) and radiation (2022) with ADT for PSA recurrence, HLD, and anxiety/depression presents here with urinary urgency, urinary frequency, and dysuria. Pt is followed by Rad onc with undetectable psa's off ADT. The patient presents here from home for on 02/23 for further evaluation of urinary symptoms. He was initially evaluated by his PCP on (02/21) and was diagnosed with a bladder infection at that time. Urine culture this visit was positive for E coli. He was started on Bactrim of which he has taken 3 doses. However despite initiation of oral antibiotics he reports urinary urgency, urinary frequency, and dysuria. His stream has been getting progessively week over the last 2 weeks. Pt has a post void residual of approx 300cc. CT of the abdomen/pelvis showed a distended urinary bladder with consequent bilateral hydronephrosis. There has been several attempts in the ER to place a finch with resistance c/w with a bladder neck contracture. Initial VS at presentation: 98? F, HR 62, RR 18, 138/74, and 100% on RA. ED workup showed: No leukocytosis, no anemia, no significant electrolyte derangements, creatinine 1.38 and GFR 53 (no previous available for comparison), and UA suspicious for UTI however has moderate epithelial cells. Review of Systems Constitutional: Constitutional: Reports body ache(s), Reports chills and Reports difficulty sleeping Genitourinary: Genitourinary: Reports dysuria, Reports urinary frequency, Reports urinary hesitancy and Reports urinary urgency [facility] Past Medical History Medical History History of prostate cancer S/p surgery (2020) and radiation (2022) Surgical History Surgical History History of prostate surgery Meds Home Medications and Allergies Allergies Allergy/AdvReac Type Severity Reaction Status Date / Time No Known Allergies Allergy Verified 02/23/25 09:42 Vital Signs Vital Signs - 24 hr 02/23/25 09:35 02/23/25 10:57 02/23/25 12:08 Temperature 36.6 C Pulse Rate 62 49 L 60 Respiratory Rate 18 14 16 Blood Pressure 138/74 127/82 134/72 Pulse Oximetry 100 100 100 Oxygen Delivery Room Air Exam HENMT: Head: normal to inspection Chest: Chest palpation & inspection: normal inspection of the chest and normal palpation of entire chest wall GI: Inspection: normal to inspection GI Palp: Yes Soft to palpation : General: Yes no CVA tenderness Penis: Yes normal penis and Yes circumcised Meatus: meatus normal Scrotum: scrotum normal Testes: Testes normal Neuro: General: oriented to person, oriented to place and oriented to time Results Labs 02/23/25 10:54 02/23/25 10:54 Labs: Short CBC 02/23/25 Range/Units 10:54 WBC 10.0 (4.5-10.0) K/mm3 Hgb 14.1 (14.0-18.0) g/dL Hct 44.1 (42.0-52.0) % Plt Count 266 (150-375) k/mm3 BMP 02/23/25 10:54 Sodium 138 Potassium 4.4 Chloride 104 Carbon Dioxide 27 BUN 13 Creatinine 1.38 H Glucose 87 Calcium 9.2 Liver Function 02/23/25 Range/Units 10:54 Total Bilirubin 1.4 H (0.2-1.3) mg/dL AST 28 (17-59) U/L ALT 22 (6-50) U/L Alkaline Phosphatase 72 (38-126) U/L Albumin 4.3 (3.5-5.1) g/dL Urine 02/23/25 Range/Units 10:22 Urine Color Yellow (Yellow) Urine Appearance Turbid H (Clear) Urine pH 6.0 (5.0-9.0) Ur Specific [place] 1.010 (1.001-1.035) Urine Protein 1+ H (Negative) mg/dL Urine Glucose (UA) Negative (Negative) mg/dL
--- NOTE | 2025-02-23 15:11 | ADMGEN ---
This patient, Uli Hurtado, was admitted to 3 Med Surg Room 303-01. Patient/family oriented to hospital policies and general routines including ID bracelet, bed and alarms, visiting hours, pain management, procedures, bathroom and other care routines, personal items, smoking policy, room service/diet, and visiting hours. Information on how to activate the Rapid Response Team has been discussed. Patient/Family are encouraged to report perceived risks to care and to ask questions if they do not understand what they are told or what they should do.
--- NOTE | 2025-02-23 15:39 | WPDANESEPPF ---
Anes - Initial Pre Proc Eval Procedure: Operation Date: 02/23/25 16:00 Proposed Procedures p Cystoscopy, Urethral Dilatation - Ted Ag MD Date/Time: 02/23/25 15:39 Surgeon: Kevin Quan MD Pre Op Diagnosis: UTI, Obstructive Uropathy Patient Data Age: 54 Gender: M Height: 1.8 m Weight: 88.9 kg Last Vital Signs Temp 37.9 C H 02/23/25 15:10 Pulse 52 L 02/23/25 15:10 Resp 16 02/23/25 15:10 BP 123/66 02/23/25 15:10 Pulse Ox 100 02/23/25 15:10 O2 Del Method Room Air 02/23/25 09:35 Allergies Allergy/AdvReac Type Severity Reaction Status Date / Time No Known Allergies Allergy Verified 02/23/25 09:42 Laboratory Tests 02/23/25 02/23/25 10:22 10:54 WBC 10.0 K/mm3 (4.5-10.0) RBC 4.77 M/mm3 (4.6-6.20) Hgb 14.1 g/dL (14.0-18.0) Hct 44.1 % (42.0-52.0) MCV 92.5 fl (80-100) MCH 29.6 pg (26-34) MCHC 32.0 g/dl (32-36) RDW 13.1 % (11.5-14.5) Plt Count 266 k/mm3 (150-375) MPV 9.3 fl (7.4-10.4) Immature Gran % (Auto) 0.3 % (0-0.5) Neut % (Auto) 74.9 H % (45.5-73.1) Lymph % (Auto) 11.3 L % (18.3-44.2) [place] % (Auto) 12.2 H % (2.6-8.5) Eos % (Auto) 0.8 % (0-4.4) Baso % (Auto) 0.5 % (0.2-1.2) Lymph # (Auto) 1.12 K/mm3 (0.9-3.2) [place] # (Auto) 1.2 H K/mm3 (0.1-0.6) Eos # (Auto) 0.1 K/mm3 (0-0.3) Baso # (Auto) 0.1 K/mm3 (0.0-0.1) Abs Immat Gran (auto) 0.03 K/mm3 (0.00-0.031) Absolute Neuts (auto) 7.5 H K/mm3 (1.3-6.7) Absolute Nucleated RBC 0.000 K/mm3 (0.0-0.012) Nucleated RBC % 0.0 % (0.0-0.2) Sodium 138 mmol/L (137-145) Potassium 4.4 mmol/L (3.4-5.0) Chloride 104 mmol/L (98-107) Carbon Dioxide 27 mmol/L (22-30) Anion Gap 7 mmol/L (4-12) BUN 13 mg/dL (9-20) Creatinine 1.38 H mg/dL (0.7-1.3) Estim Creat Clear Calc 57 ml/min Estimated GFR 53 L (59 - ) Glucose 87 mg/dL (65-110) Calcium 9.2 mg/dL (8.4-10.2) Total Bilirubin 1.4 H mg/dL (0.2-1.3) AST 28 U/L (17-59) ALT 22 U/L (6-50) Alkaline Phosphatase 72 U/L (38-126) Total Protein 7.3 g/dL (6.3-8.2) Albumin 4.3 g/dL (3.5-5.1) Lipase 97 U/L (23-300) Urine Color Yellow (Yellow) Urine Appearance Turbid H (Clear) Urine pH 6.0 (5.0-9.0) Ur Specific [place] 1.010 (1.001-1.035) Urine Protein 1+ H mg/dL (Negative) Urine Glucose (UA) Negative mg/dL (Negative) Urine Ketones Negative mg/dL (Negative) Ur Blood (Man) 2+ H (Negative) Urine Nitrate Positive H (Negative) Urine Bilirubin Negative (Negative) Urine Urobilinogen 0.2 mg/dL (<2.0) Leukocyte Esterase Rfl 3+ H VITO/UL (Negative) Urine RBC 3-5 H /hpf (0-2) Urine WBC >100 H /hpf (0-3) Ur Squamous Epith Cells Moderate /hpf (Few) Urine Bacteria 1+ H /hpf Urine Casts 3-5 Patient hx anesthesia problems: none Family hx anesthesia problems: none Results Review: All pre-operative results and documents have been reviewed as part of the pre-operative evaluation. [facility] Past Medical History Medical History History of prostate cancer S/p surgery (2020) and radiation (2022) Surgical History Surgical History History of prostate surgery Anes - Eval Final PreProcedure Day of Procedure 02/23/25 15:39 Patient weight: overweight Heart: regular rate and rhythm Lungs: clear to auscultation Airway: Mallampati scale class II Neurological: alert and oriented Last oral intake: >/= 8 hours ASA classification: III Emergent: no Anesthetic plan: proceed Anesthesia type and monitoring: general LMA and standard monitoring Results Review: All pre-operative results and documents have been reviewed as part of the pre-operative evaluation. Informed Consent: The patient's anesthetic plan and its attendant risks and benefits were discussed with the patient/family/POA. Questions were solicited and answers provided to the satisfaction of the patient/family/POA.
--- NOTE | 2025-02-23 15:42 | WPDHPUPDATE1 ---
History and Physical Update Update Date/Time: 02/23/25 15:42 History and Physical has been reviewed, including an updated exam of the patient. Will perform cystoscopy with dilation of bladder neck contracture and placement of catheter. There are NO changes in the patient's condition. Risks, benefits, and alternatives have been discussed and questions answered. Patient agrees to proceed with procedure.
--- NOTE | 2025-02-23 15:51 | W.PM.PROC2 ---
Procedure Note - Detailed Date of Procedure 02/23/25 Pre-op Diagnosis UTI, Obstructive Uropathy Post-op Diagnosis Other (Bladder neck contracture) Procedure Performed cystoscopy with dilation of a bladder neck contracture and placement of a finch cath. Surgeon Ted Ag MD Anesthesia General Indications Poor voiding efficiency with recurrent uti's and inabilty to pass a urethral catheter Description of Procedure Pt was taken to the OR and placed under GETA. Pt was positioned in lithotomy. Pt's genitalia was prepped and draped in a sterile fashion. A 22f cystoscope was placed into the urethra where a tight 6f stricture was noted at the bladder neck. A stiff Amplatz wire was passed through the narrowing and into the bladder. Using coaxial dilators the stricure was dilated to 22f. A flexible cystoscope was advanced over the wire into bladder identifing the tight dense bladder neck. The bladder was distented with cloudy urine. An 18f coucil tipped cath was placed into the bladder over the wire. Pt tolerated this well and was taken to the PACU in stable condition. Complications None
[2025-02-23] MEDS: LACTATED RINGERS 1,000 ML 30 ML IV CONT (16:23)
[2025-02-23] MEDS: fentaNYL CITRATE INJ (*CRX) 100 MCG/2 ML VIAL 25 MCG IV PUSH ×4 (16:32→16:45)
[2025-02-23] MEDS: HYOSCYAMINE SULFATE 0.125 MG TABLET SUBLINGUAL ×2 (16:56→21:23)
[2025-02-23] MEDS: MORPHINE SULFATE (*CRX) 4 MG/ML INJ 2 MG IV PUSH ×3 (17:28→23:52)
[2025-02-23] MEDS: DOCUSATE SODIUM 100 MG CAPSULE PO (17:53)
[2025-02-23] MEDS: DEXTROSE 5%/LACTATED RINGERS 1,000 ML 125 ML IV CONT (17:54)
[2025-02-23] MEDS: LIDOCAINE 2% GEL UROJET 10 ML PKG MUCOUS MEM (18:51)
--- NOTE | 2025-02-23 23:07 | P.HP_ITS ---
H&P: HPI History of Present Illness Date/Time: 02/23/25 23:07 Chief Complaint: Urinary Urgency and Frequency Narrative: 54 y/o M with PMH of prostate cancer s/p surgery (2020) and radiation (2022), HLD, and anxiety/depression presents here with urinary urgency, urinary frequency, and dysuria. The patient presents here from home for on 02/23 for further evaluation of urinary symptoms. He was initially evaluated by his PCP on (02/21) and was diagnosed with a bladder infection at that time. Urine culture this visit was positive for E coli. He was started on Bactrim of which he has taken 3 doses. However despite initiation of oral antibiotics he reports urinary urgency, urinary frequency, and dysuria. Reports he was having so much difficulty urinating that he would have to milk things like a cow. He also reports he developed a fever Tuesday (02/22) night, maxT 100F, that was accompanied by lower back pain (bilateral, however worse on the right) and nausea without vomiting (attributed this to his abx). He describes the back pain as dull, radiation into his lower abdomen, constant, somewhat relieved with Tylenol, and no aggravating factors. His past medical history significant for prostate cancer for which he previously underwent surgery and radiation. He denies previous history of urinary retention, kidney stones, and/or urinary tract infections. Post-cystoscopy he is reporting some discomfort at his catheter site (required Urology) and his back pain has resolved. Initial VS at presentation: 98? F, HR 62, RR 18, 138/74, and 100% on RA. ED workup showed: No leukocytosis, no anemia, no significant electrolyte derangements, creatinine 1.38 and GFR 53 (no previous available for comparison), and UA suspicious for UTI however has moderate epithelial cells. CT of the a bdomen/pelvis showed a distended urinary bladder with consequent bilateral hydronephrosis. Review of Systems Review of Systems: All systems reviewed & are unremarkable except as noted in HPI and below PMFSH Past Medical History Medical History History of prostate cancer S/p surgery (2020) and radiation (2022) Surgical History Surgical History History of prostate surgery Social History Social History Smoking status: Former smoker Alcohol intake: never Substance use: never Lack of Transportation: No Lack of Food: Never True Current Housing: I Have Housing Concerned About Future Housing: No Difficulty Paying Gas/Electric Bills: No Difficulty Paying for Meds: No Currently Unemployed: No Education: Associate Degree Difficulty w/ Childcare or Family Care: No Spiritual care concerns: No Meds Home Medications and Allergies Home Medications ?Medication ?Instructions ?Recorded ?Confirmed ?Type aspirin 81 mg tablet,delayed 81 mg PO DAILY 02/23/25 1 04/26/24 History release (Adult Aspirin Regimen) escitalopram oxalate 20 mg tablet 20 mg PO DAILY 02/2302/23/25 History simvastatin 40 mg tablet 40 mg PO DAILY 02/23/2502/05 History tadalafil 10 mg tablet (Cialis) 10 mg PO DAILY PRN sex ual activity 02/23/25 02/23/25 History tadalafil 5 mg tablet (Cialis) 5 mg PO DAILY 02/23/25 02/23/25 History Allergies Allergy/AdvReac Type Severity Reaction Status Date / Time vancomycin Allergy Rash Verified 02/23/25 18:11 Vital Signs Vital Signs - 24 hr 02/23/25 09:35 02/23/25 10:57 02/23/25 12:08 Temperature 98 F Pulse Rate 62 49 L 60 Respiratory Rate 18 14 16 Blood Pressure 138/74 127/82 134/72 Pulse Oximetry 100 100 100 Oxygen Delivery Room Air Exam Const: General: no acute distress Other: , male, nontoxic appearance, visibly uncomfortable HENMT: Face/Nose/Sinus: Normal nares present Eyes: General: appearance normal, both eyes and all related structures Sclera: sclerae normal Pupils: Equal, round and reactive pupils present EOM: EOMs intact bilaterally Resp: Effort & Inspection: normal respiratory effort Auscultation: clear to auscultation bilaterally Cardio: Rate: regular rate Rhythm: regular rhythm Other: S1-S2 present without murmur, rub, ectopy GI: Other: Abdomen soft, nondistended, nontender. Normoactive bowel sounds in all quadrants. Urinary Catheter: Urinary Catheter: patent and draining Skin: General skin exam: normal color and no rashes or lesions noted Wounds: no wounds Neuro: Speech: normal speech Motor exam (neuro): 5/5 motor strength present throughout Sensory Exam: normal sensation Other: A&O x4 Extrem: General: normal to inspection Psych: Mental Status: mental status grossly normal Affect: normal affect Other: Good insight and judgment, very pleasant Results Labs Labs: Short CBC 02/23/25 Range/Units 10:54 WBC 10.0 (4.5-10.0) K/mm3 Hgb 14.1 (14.0-18.0) g/dL Hct 44.1 (42.0-52.0) % Plt Count 266 (150-375) k/mm3 BMP 02/23/25 10:54 Sodium 138 Potassium 4.4 Chloride 104 Carbon Dioxide 27 BUN 13 Creatinine 1.38 H Glucose 87 Calcium 9.2 Liver Function 02/23/25 Range/Units 10:54 Total Bilirubin 1.4 H (0.2-1.3) mg/dL AST 28 (17-59) U/L ALT 22 (6-50) U/L Alkaline Phosphatase 72 (38-126) U/L Albumin 4.3 (3.5-5.1) g/dL Urine 02/23/25 Range/Units 10:22 Urine Color Yellow (Yellow) Urine Appearance Turbid H (Clear) Urine pH 6.0 (5.0-9.0) Ur Specific [place] 1.010 (1.001-1.035) Urine Protein 1+ H (Negative) mg/dL Urine Glucose (UA) Negative (Negative) mg/dL Quality VTE Prophylaxis VTE prophylaxis: mechanical ordered Assessment and Plan Assessment and plan (1) Urinary tract infection: Qualifiers: Hematuria presence: without hematuria Urinary tract infection type: acute cystitis Qualified Code(s): N30.00 - Acute cystitis without hematuria Code(s): N39.0 - Urinary tract infection, site not specified Status: Acute Assessment and Plan: Patient here with urinary symptoms including urinary frequency, urinary urgency, and dysuria. Diagnosed with a bladder infection on (02/21). UC at that time positive for e. coli. Placed on Macrobid PO, has taken 3 doses without improvement in symptoms. Did not meet SIRS criteria, no leukocytosis, and mild HORTENCIA noted. CT of the abdomen/pelvis showed a distended urinary bladder with consequent bilateral hydronephrosis, see below. - UA: Turbid, 1+ protein, 2+ blood, positive nitrates, 3+ leuk esterase, 3-5 RBC, greater than 100 WBC, moderate epithelial cells, 1+ bacteria - obtain urine culture results from to review sensitivities, positive for E coli - no previous micro available for review - started on Ceftriaxone IV on 02/23, continued inpatient (2) Obstructed, uropathy: Code(s): N13.9 - Obstructive and reflux uropathy, unspecified Status: Acute Assessment and Plan: Bladder noted to be distended on CT from 02/23. +UTI, likely culprit for new retention however does have history complicated by prostate cancer for which he has previously underwent surgery and radiation. - place Willson, difficulty placing in the ED despite multiple RN attempts. ED reached out to Urology for placement >> consulted attempted in the ED, unable to place. Was placed in the OR during cystoscopy. - monitor I&Os - urology consulted, see note - IV fluids: LR 100 mL/hr - start Flomax (3) HORTENCIA (acute kidney injury): Code(s): N17.9 - Acute kidney failure, unspecified Status: Acute Assessment and Plan: No previous history of renal dysfunction or CKD. Creatinine 1.38, GFR 53, BUN 13. Very mild HORTENCIA. Likely related to acute urinary retention. Suspect mild elevation will resolve with placement of Willson and IV fluids. - Willson to be placed by Urology - IV fluids - trend renal function and electrolytes, correct electrolytes as needed Plan Diet: regular GI Prophylaxis: n/a DVT Prophylaxis: SCDs IV fluids: LR 100 mL/hr Lines/Tubes: pIV, Willson Code Status: full code Prior Studies I have reviewed the following patient records and this information was taken into consideration when formulating the assessment and plan.: previous labs, previous ER visits, previous hospitalizations and previous clinic visits Time Spent with Patient Time with patient: less than 45 minutes Hospitalist MIPS Advance Care Plan I have confirmed that the patient's Advanced Care Plan is present, code status is documented, or surrogate decision maker is listed in patient medical record.: Yes Medication Reconciliation I have utilized all available resources to obtain, update and review the patients current medications (includes all prescriptions, OTC, herbals, cannabis, and nutritional supplements).: Yes
[2025-02-24] VITALS (8 sets, daily range): BP systolic 112–146; BP diastolic 54–74; PULSE 46–55; RESP 14–18; TEMP 36.1–37.1; O2SAT 97–100
[2025-02-24] MEDS: DEXTROSE 5%/LACTATED RINGERS 1,000 ML 125 ML IV CONT (01:01)
[2025-02-24] MEDS: HYDROcodone/acetaminophen (*CRX) 5-325 MG TABLET 1 TAB PO ×3 (01:04→23:28)
[2025-02-24] MEDS: MORPHINE SULFATE (*CRX) 4 MG/ML INJ 2 MG IV PUSH ×2 (05:31→22:24)
[2025-02-24 06:32] LABS: Hematocrit 42.8 % (42.0-52.0); Hemoglobin 13.5 g/dL (14.0-18.0); Immature Granulocyte Percent A 0.3 % (0-0.5); Lymphocytes Absolute Auto 1.31 K/mm3 (0.9-3.2); Mean Corpuscular HGB Conc 31.5 g/dl (32-36); Mean Corpuscular Hemoglobin 29.4 pg (26-34); Mean Corpuscular Volume 93.2 fl (80-100); Nucleated Red Blood Cells Absolute Auto 0.000 K/mm3 (0.0-0.012); Nucleated Red Blood Cells Perc 0.0 % (0.0-0.2); Platelet Count Result 248 k/mm3 (150-375); Red Blood Count 4.59 M/mm3 (4.6-6.20); White Blood Count 7.9 K/mm3 (4.5-10.0)
[2025-02-24 06:58] LABS: Anion Gap 7 mmol/L (4-12); Blood Urea Nitrogen 9 mg/dL (9-20); Calcium 8.6 mg/dL (8.4-10.2); Carbon Dioxide 29 mmol/L (22-30); Chloride 104 mmol/L (98-107); Estimated CRCL calculation 65 ml/min; Estimated Glomerular Filt Rate > 60; Glucose 84 mg/dL (65-110); Potassium 4.0 mmol/L (3.4-5.0); Sodium 140 mmol/L (137-145)
--- NOTE | 2025-02-24 07:04 | P.PNIM_ITS ---
Assessment and Plan Assessment and Plan (1) Urinary tract infection: Qualifiers: Hematuria presence: without hematuria Urinary tract infection type: acute cystitis Qualified Code(s): N30.00 - Acute cystitis without hematuria Code(s): N39.0 - Urinary tract infection, site not specified Status: Acute Assessment and Plan: * Diagnosed with a bladder infection on (02/21). UC at that time positive for e. coli. * Originally placed on Macrobid PO, has taken 3 doses without improvement in symptoms. * CT abdomen/pelvis: distended urinary bladder with consequent bilateral hydronephrosis, see below. * UA: Turbid, 1+ protein, 2+ blood, positive nitrates, 3+ leuk esterase, 3-5 RBC, greater than 100 WBC, moderate epithelial cells, 1+ bacteria * obtain urine culture results from to review sensitivities, positive for E coli * no previous micro available for review * started on Ceftriaxone IV on 02/23, continued inpatient (2) Obstructed, uropathy: Code(s): N13.9 - Obstructive and reflux uropathy, unspecified Status: Acute Assessment and Plan: Bladder noted to be distended on CT from 02/23. +UTI, likely culprit for new retention however does have history complicated by prostate cancer for which he has previously underwent surgery and radiation. * place Finch, difficulty placing in the ED despite multiple RN attempts. ED reached out to Urology for placement >> consulted attempted in the ED, unable to place. Was placed in the OR during cystoscopy. * monitor I&Os * urology consulted, see note * IV fluids: LR 100 mL/hr * start Flomax (3) HORTENCIA (acute kidney injury): Code(s): N17.9 - Acute kidney failure, unspecified Status: Acute Assessment and Plan: No previous history of renal dysfunction or CKD. Creatinine 1.38, GFR 53, BUN 13. Very mild HORTENCIA. Likely related to acute urinary retention. Suspect mild elevation will resolve with placement of Finch and IV fluids. * Finch to be placed by Urology * IV fluids * trend renal function and electrolytes, correct electrolytes as needed * Resolved Plan Diet: regular GI Prophylaxis: n/a DVT Prophylaxis: SCDs IV fluids: LR 100 mL/hr Lines/Tubes: pIV, Finch Code Status: full code Subjective Date/time seen: 02/24/25 07:04 Interval history: 54 y/o M with PMH of prostate cancer s/p surgery (2020) and radiation (2022), HLD, and anxiety/depression presents here with urinary urgency, urinary frequency, and dysuria. 02/24/2025 Patient sitting comfortably in bed at time of exam. Denies any CP, SOB, n/v or abd pain. S/p cystoscopy w/ dilation of bladder neck contracture on 02/23. Urology still following. Urine culture pending - continue IV abx. Remains afebrile without leukocytosis. Otherwise doing well post procedure and in good spirits. Review of Systems Review of Systems: All systems reviewed & are unremarkable except as noted in HPI and below Exam Narrative: finch, suprapubic/lower abdominal pain with palpation. Const: General: no acute distress Other: , male, nontoxic appearance, visibly uncomfortable HENMT: Face/Nose/Sinus: Normal nares present Eyes: General: appearance normal, both eyes and all related structures Sclera: sclerae normal Pupils: Equal, round and reactive pupils present EOM: EOMs intact bilaterally Resp: Effort & Inspection: normal respiratory effort Auscultation: clear to auscultation bilaterally Cardio: Rate: regular rate Rhythm: regular rhythm Other: S1-S2 present without murmur, rub, ectopy GI: Other: Abdomen soft, nondistended, nontender. Normoactive bowel sounds in all quadrants. Urinary Catheter: Urinary Catheter: patent and draining Skin: General skin exam: normal color and no rashes or lesions noted Wounds: no wounds Neuro: Cranial nerves: Yes Equal, round and reactive pupils present Speech: normal speech Motor exam (neuro): 5/5 motor strength present throughout Sensory Exam: normal sensation Other: A&O x4 Extrem: General: normal to inspection Psych: Mental Status: mental status grossly normal Affect: normal affect Other: Good insight and judgment, very pleasant Objective Data Vital Signs Vital Signs: Vital Signs - 24 hr 02/23/25 09:35 02/23/25 10:57 02/23/25 12:08 Temperature 98 F Pulse Rate 62 49 L 60 Respiratory Rate 18 14 16 Blood Pressure 138/74 127/82 134/72 Pulse Oximetry 100 100 100 Oxygen Delivery Room Air Oxygen Flow Rate 02/23/25 15:10 02/23/25 16:23 02/23/25 16:35 Temperature 100.3 F H 99.5 F Pulse Rate 52 L 58 L 61 Respiratory Rate 16 22 H 14 Blood Pressure 123/66 118/58 L 147/67 H Pulse Oximetry 100 100 100 Oxygen Delivery Simple Face Mask Simple Face Mask Oxygen Flow Rate 8 8 02/23/25 16:50 02/23/25 17:30 02/23/25 17:53 Temperature 97.8 F 98.1 F Pulse Rate 60 59 L 54 L Respiratory Rate 12 20 12 Blood Pressure 152/80 H 156/87 H 166/86 H Pulse Oximetry 98 100 100 Oxygen Delivery Room Air Oxygen Flow Rate 02/23/25 18:06 02/23/25 20:30 02/23/25 21:22 Temperature 97.7 F 98.6 F Pulse Rate 57 L 52 L Respiratory Rate 12 16 Blood Pressure 153/83 H 130/63 Pulse Oximetry 100 97 Oxygen Delivery Room Air Oxygen Flow Rate 02/24/25 01:00 02/24/25 05:00 Temperature 97.8 F 97.1 F L Pulse Rate 54 L 55 L Respiratory Rate 16 16 Blood Pressure 121/71 112/56 L Pulse Oximetry 97 97 Oxygen Delivery Oxygen Flow Rate Intake/Output Intake/Output: Intake & Output 02/21/25 02/22/25 02/23/25 02/24/25 23:59 23:59 23:59 23:59 Intake Total 168 1009.6 Output Total 350 2475 Balance -182 1462.4 Meds/Results Medications: Active Medications Generic Name Dose Route Start Last Admin Trade Name Freq PRN Reason Stop Dose Admin Acetaminophen 650 mg 02/23/25 11:57 Acetaminophen 325 Mg Tablet PO Q4H PRN Mild Pain (1-3) or Fever Hydrocodone Bitart/Acetaminophen 1 tab 02/23/25 23:40 02/24/25 01:04 Hydrocodone/Acetaminophen (*Crx) 5-325 Mg Tablet PO 1 tab Q6H PRN Administration Pain Rated 4-6 Aspirin 81 mg 02/24/25 09:00 Aspirin 81 Mg Enteric Tablet PO DAILY [facility] Docusate Sodium 100 mg 02/23/25 13:25 Docusate Sodium 100 Mg Capsule PO BID PRN Constipation Docusate Sodium 100 mg 02/23/25 17:00 02/23/25 17:53 Docusate Sodium 100 Mg Capsule PO 100 mg BID [facility] Administration Escitalopram Oxalate 20 mg 02/24/25 09:00 Escitalopram Oxalate 10 Mg Tablet PO DAILY [facility] Heparin Sodium (Porcine) 5,000 units 02/23/25 21:00 02/23/25 21:22 Heparin Sodium 5,000 Units/Ml Vial SUB-Q 5,000 units Q12HR [facility] Administration Hyoscyamine 0.125 mg 02/23/25 16:21 02/23/25 21:23 Hyoscyamine Sulfate 0.125 Mg Tablet SUBLINGUAL 0.125 mg Q6H PRN Administration Bladder Spasm Ceftriaxone Sodium 1 gm/ 50 mls @ 100 mls/hr 02/24/25 12:00 Sodium Chloride IVPB Q24H [facility] Dextrose/Lactated Ringer's 1,000 mls @ 125 mls/hr 02/23/25 16:25 02/24/25 01:01 Dextrose 5%/Lactated Ringers IV CONT 125 mls/hr .Q8H [facility] Administration Morphine Sulfate 2 mg 02/23/25 16:21 02/24/25 05:31 Morphine Sulfate (*Crx) 4 Mg/Ml Inj IV PUSH 2 mg Q2H PRN Administration Pain Rated 7-10 Naloxone HCl 0.1 mg 02/23/25 16:21 Naloxone Hcl 0.4 Mg/Ml Vial IV PUSH Q2M PRN Opiate Reversal Simvastatin 40 mg 02/24/25 09:00 Simvastatin 20 Mg Tablet PO DAILY [facility] Radiology Results: ITS Impressions Abdomen/Pelvis CT 02/23/25 10:55 IMPRESSION: 1. Distended urinary bladder with consequent bilateral hydronephrosis. Labs Labs: Laboratory Results - last 24 hr 02/23/25 02/23/25 02/24/25 10:22 10:54 05:18 WBC 10.0 7.9 RBC 4.77 4.59 L Hgb 14.1 13.5 L Hct 44.1 42.8 MCV 92.5 93.2 MCH 29.6 29.4 MCHC 32.0 31.5 L RDW 13.1 13.2 Plt Count 266 248 MPV 9.3 9.8 Immature Gran % (Auto) 0.3 0.3 Neut % (Auto) 74.9 H 69.4 Lymph % (Auto) 11.3 L 16.7 L [place] % (Auto) 12.2 H 11.6 H Eos % (Auto) 0.8 1.5 Baso % (Auto) 0.5 0.5 Lymph # (Auto) 1.12 1.31 [place] # (Auto) 1.2 H 0.9 H Eos # (Auto) 0.1 0.1 Baso # (Auto) 0.1 0.0 Abs Immat Gran (auto) 0.03 0.02 Absolute Neuts (auto) 7.5 H 5.5 Absolute Nucleated RBC 0.000 0.000 Nucleated RBC % 0.0 0.0 Sodium 138 140 Potassium 4.4 4.0 Chloride 104 104 Carbon Dioxide 27 29 Anion Gap 7 7 BUN 13 9 Creatinine 1.38 H 1.20 Estim Creat Clear Calc 57 65 Estimated GFR 53 L > 60 Glucose 87 84 Calcium 9.2 8.6 Total Bilirubin 1.4 H AST 28 ALT 22 Alkaline Phosphatase 72 Total Protein 7.3 Albumin 4.3 Lipase 97 Urine Color Yellow Urine Appearance Turbid H Urine pH 6.0 Ur Specific [place] 1.010 Urine Protein 1+ H Urine Glucose (UA) Negative Urine Ketones Negative Ur Blood (Man) 2+ H Urine Nitrate Positive H Urine Bilirubin Negative Urine Urobilinogen 0.2 Leukocyte Esterase Rfl 3+ H Urine RBC 3-5 H Urine WBC >100 H Ur Squamous Epith Cells Moderate Urine Bacteria 1+ H Urine Casts 3-5 Quality VTE Prophylaxis VTE prophylaxis: mechanical ordered
[2025-02-24] MEDS: SIMVASTATIN 20 MG TABLET 40 MG PO (08:50)
[2025-02-24] MEDS: DOCUSATE SODIUM 100 MG CAPSULE PO ×2 (08:51→17:13)
[2025-02-24] MEDS: ASPIRIN 81 MG ENTERIC TABLET PO (08:51)
[2025-02-24] MEDS: ESCITALOPRAM OXALATE 10 MG TABLET 20 MG PO (08:51)
[2025-02-24] MEDS: HYOSCYAMINE SULFATE 0.125 MG TABLET SUBLINGUAL ×3 (09:01→23:28)
--- NOTE | 2025-02-24 10:36 | WPDUROPN2 ---
Progress Note: A&P Assessment and Plan (1) Obstructed, uropathy: Code(s): N13.9 - Obstructive and reflux uropathy, unspecified Status: Acute Assessment and Plan: pod #1 cysto dilation of tight bladder neck contracture and cath placement Teach finch leg bag care, cath in 1-2 weeks f/u with Dr. Payne for cath removal and BNC management (2) Urinary tract infection: Qualifiers: Hematuria presence: without hematuria Urinary tract infection type: acute cystitis Qualified Code(s): N30.00 - Acute cystitis without hematuria Code(s): N39.0 - Urinary tract infection, site not specified Status: Acute Assessment and Plan: Urine Cx pending cont empiric rocephin Subjective Subjective Date/Time Seen: 02/24/25 10:36 Interval history: Pt feeling much better today, urine clear and draining well with finch Exam : Male General Exam: Yes normal external exam (finch in place draining well) Urinary Catheter: Urinary Catheter: patent and draining and urine clear Objective Data Vital Signs Vital Signs: Vital Signs - 24 hr 02/23/25 10:57 02/23/25 12:08 02/23/25 15:10 Temperature 37.9 C H Pulse Rate 49 L 60 52 L Respiratory Rate 14 16 16 Blood Pressure 127/82 134/72 123/66 Pulse Oximetry 100 100 100 Oxygen Delivery Oxygen Flow Rate 02/23/25 16:23 02/23/25 16:35 02/23/25 16:50 Temperature 37.5 C Pulse Rate 58 L 61 60 Respiratory Rate 22 H 14 12 Blood Pressure 118/58 L 147/67 H 152/80 H Pulse Oximetry 100 100 98 Oxygen Delivery Simple Face Mask Simple Face Mask Room Air Oxygen Flow Rate 8 8 02/23/25 17:30 02/23/25 17:53 02/23/25 18:06 Temperature 36.6 C 36.7 C 36.5 C Pulse Rate 59 L 54 L 57 L Respiratory Rate 20 12 12 Blood Pressure 156/87 H 166/86 H 153/83 H Pulse Oximetry 100 100 100 Oxygen Delivery Oxygen Flow Rate 02/23/25 20:30 02/23/25 21:22 02/24/25 01:00 Temperature 37.0 C 36.6 C Pulse Rate 52 L 54 L Respiratory Rate 16 16 Blood Pressure 130/63 121/71 Pulse Oximetry 97 97 Oxygen Delivery Room Air Oxygen Flow Rate 02/24/25 05:00 02/24/25 08:00 Temperature 36.2 C L 36.1 C L Pulse Rate 55 L 53 L Respiratory Rate 16 16 Blood Pressure 112/56 L 119/66 Pulse Oximetry 97 100 Oxygen Delivery Oxygen Flow Rate Intake/Output Intake/Output: Intake & Output 02/21/25 02/22/25 02/23/25 02/24/25 23:59 23:59 23:59 23:59 Intake Total 168 1249.6 Output Total 350 3275 Balance -182 -2024.4 Meds/Results Medications: Active Medications Generic Name Dose Route Start Last Admin Trade Name Freq PRN Reason Stop Dose Admin Acetaminophen 650 mg 02/23/25 11:57 Acetaminophen 325 Mg Tablet PO Q4H PRN Mild Pain (1-3) or Fever Hydrocodone Bitart/Acetaminophen 1 tab 02/23/25 23:40 02/24/25 08:50 Hydrocodone/Acetaminophen (*Crx) 5-325 Mg Tablet PO 1 tab Q6H PRN Administration Pain Rated 4-6 Aspirin 81 mg 02/24/25 09:00 02/24/25 08:51 Aspirin 81 Mg Enteric Tablet PO 81 mg DAILY [facility] Administration Docusate Sodium 100 mg 02/23/25 13:25 Docusate Sodium 100 Mg Capsule PO BID PRN Constipation Docusate Sodium 100 mg 02/23/25 17:00 02/24/25 08:51 Docusate Sodium 100 Mg Capsule PO 100 mg BID [facility] Administration Escitalopram Oxalate 20 mg 02/24/25 09:00 02/24/25 08:51 Escitalopram Oxalate 10 Mg Tablet PO 20 mg DAILY [facility] Administration Heparin Sodium (Porcine) 5,000 units 02/23/25 21:00 02/24/25 08:51 Heparin Sodium 5,000 Units/Ml Vial SUB-Q 5,000 units Q12HR [facility] Administration Hyoscyamine 0.125 mg 02/23/25 16:21 02/24/25 09:01 Hyoscyamine Sulfate 0.125 Mg Tablet SUBLINGUAL 0.125 mg Q6H PRN Administration Bladder Spasm Ceftriaxone Sodium 1 gm/ 50 mls @ 100 mls/hr 02/24/25 12:00 Sodium Chloride IVPB Q24H [facility] Dextrose/Lactated Ringer's 1,000 mls @ 125 mls/hr 02/23/25 16:25 02/24/25 09:43 Dextrose 5%/Lactated Ringers IV CONT Not Given .Q8H [facility] Morphine Sulfate 2 mg 02/23/25 16:21 02/24/25 05:31 Morphine Sulfate (*Crx) 4 Mg/Ml Inj IV PUSH 2 mg Q2H PRN Administration Pain Rated 7-10 Naloxone HCl 0.1 mg 02/23/25 16:21 Naloxone Hcl 0.4 Mg/Ml Vial IV PUSH Q2M PRN Opiate Reversal Simvastatin 40 mg 02/24/25 09:00 02/24/25 08:50 Simvastatin 20 Mg Tablet PO 40 mg DAILY [facility] Administration Radiology Results: ITS Impressions Abdomen/Pelvis CT 02/23/25 10:55 IMPRESSION: 1. Distended urinary bladder with consequent bilateral hydronephrosis. Labs Labs: Laboratory Results - last 24 hr 02/23/25 02/23/25 02/24/25 10:22 10:54 05:18 WBC 10.0 7.9 RBC 4.77 4.59 L Hgb 14.1 13.5 L Hct 44.1 42.8 MCV 92.5 93.2 MCH 29.6 29.4 MCHC 32.0 31.5 L RDW 13.1 13.2 Plt Count 266 248 MPV 9.3 9.8 Immature Gran % (Auto) 0.3 0.3 Neut % (Auto) 74.9 H 69.4 Lymph % (Auto) 11.3 L 16.7 L [place] % (Auto) 12.2 H 11.6 H Eos % (Auto) 0.8 1.5 Baso % (Auto) 0.5 0.5 Lymph # (Auto) 1.12 1.31 [place] # (Auto) 1.2 H 0.9 H Eos # (Auto) 0.1 0.1 Baso # (Auto) 0.1 0.0 Abs Immat Gran (auto) 0.03 0.02 Absolute Neuts (auto) 7.5 H 5.5 Absolute Nucleated RBC 0.000 0.000 Nucleated RBC % 0.0 0.0 Sodium 138 140 Potassium 4.4 4.0 Chloride 104 104 Carbon Dioxide 27 29 Anion Gap 7 7 BUN 13 9 Creatinine 1.38 H 1.20 Estim Creat Clear Calc 57 65 Estimated GFR 53 L > 60 Glucose 87 84 Calcium 9.2 8.6 Total Bilirubin 1.4 H AST 28 ALT 22 Alkaline Phosphatase 72 Total Protein 7.3 Albumin 4.3 Lipase 97 Urine Color Yellow Urine Appearance Turbid H Urine pH 6.0 Ur Specific [place] 1.010 Urine Protein 1+ H Urine Glucose (UA) Negative Urine Ketones Negative Ur Blood (Man) 2+ H Urine Nitrate Positive H Urine Bilirubin Negative Urine Urobilinogen 0.2 Leukocyte Esterase Rfl 3+ H Urine RBC 3-5 H Urine WBC >100 H Ur Squamous Epith Cells Moderate Urine Bacteria 1+ H Urine Casts 3-5
[2025-02-24] MEDS: cefTRIAXone 1 GM in SODIUM CHLORIDE 0.9% IV 50 ML 100 ML IVPB (11:19)
[2025-02-25 05:21] VITALS: BP 127/66; PULSE 50; RESP 16; TEMP 36.1; O2SAT 98
[2025-02-25] MEDS: MORPHINE SULFATE (*CRX) 4 MG/ML INJ 2 MG IV PUSH ×2 (05:55→22:00)
[2025-02-25] MEDS: HYOSCYAMINE SULFATE 0.125 MG TABLET SUBLINGUAL ×2 (05:57→22:01)
--- NOTE | 2025-02-25 07:34 | P.PNIM_ITS ---
Assessment and Plan Assessment and Plan (1) Urinary tract infection: Qualifiers: Hematuria presence: without hematuria Urinary tract infection type: acute cystitis Qualified Code(s): N30.00 - Acute cystitis without hematuria Code(s): N39.0 - Urinary tract infection, site not specified Status: Acute Assessment and Plan: * Diagnosed with a bladder infection on (02/21). UC at that time positive for e. coli. * Originally placed on Macrobid PO, has taken 3 doses without improvement in symptoms. * CT abdomen/pelvis: distended urinary bladder with consequent bilateral hydronephrosis, see below. * UA: Turbid, 1+ protein, 2+ blood, positive nitrates, 3+ leuk esterase, 3-5 RBC, greater than 100 WBC, moderate epithelial cells, 1+ bacteria * obtain urine culture results from to review sensitivities, positive for E coli * no previous micro available for review * started on Ceftriaxone IV on 02/23, continued inpatient (2) Obstructed, uropathy: Code(s): N13.9 - Obstructive and reflux uropathy, unspecified Status: Acute Assessment and Plan: Bladder noted to be distended on CT from 02/23. +UTI, likely culprit for new retention however does have history complicated by prostate cancer for which he has previously underwent surgery and radiation. * place Finch, difficulty placing in the ED despite multiple RN attempts. ED reached out to Urology for placement >> consulted attempted in the ED, unable to place. Was placed in the OR during cystoscopy. * monitor I&Os * urology consulted, see note * IV fluids: LR 100 mL/hr * start Flomax (3) HORTENCIA (acute kidney injury): Code(s): N17.9 - Acute kidney failure, unspecified Status: Acute Assessment and Plan: No previous history of renal dysfunction or CKD. Creatinine 1.38, GFR 53, BUN 13. Very mild HORTENCIA. Likely related to acute urinary retention. Suspect mild elevation will resolve with placement of Finch and IV fluids. * Finch to be placed by Urology * IV fluids * trend renal function and electrolytes, correct electrolytes as needed * Resolved Plan Diet: regular GI Prophylaxis: n/a DVT Prophylaxis: SCDs IV fluids: LR 100 mL/hr Lines/Tubes: pIV, Finch Code Status: full code Subjective Date/time seen: 02/25/25 07:34 Interval history: 54 y/o M with PMH of prostate cancer s/p surgery (2020) and radiation (2022), HLD, and anxiety/depression presents here with urinary urgency, urinary frequency, and dysuria. 02/24/2025 Patient sitting comfortably in bed at time of exam. Denies any CP, SOB, n/v or abd pain. S/p cystoscopy w/ dilation of bladder neck contracture on 02/23. Urine culture still pending. Pt otherwise progresing well and has no concerns. Likely dc tomorrow. Review of Systems Review of Systems: All systems reviewed & are unremarkable except as noted in HPI and below Exam Narrative: finch, suprapubic/lower abdominal pain with palpation. Const: General: no acute distress Other: , male, nontoxic appearance, visibly uncomfortable HENMT: Face/Nose/Sinus: Normal nares present Eyes: General: appearance normal, both eyes and all related structures Sclera: sclerae normal Pupils: Equal, round and reactive pupils present EOM: EOMs intact bilaterally Resp: Effort & Inspection: normal respiratory effort Auscultation: clear to auscultation bilaterally Cardio: Rate: regular rate Rhythm: regular rhythm Other: S1-S2 present without murmur, rub, ectopy GI: Other: Abdomen soft, nondistended, nontender. Normoactive bowel sounds in all quadrants. Urinary Catheter: Urinary Catheter: patent and draining Skin: General skin exam: normal color and no rashes or lesions noted Wounds: no wounds Neuro: Cranial nerves: Yes Equal, round and reactive pupils present Speech: normal speech Motor exam (neuro): 5/5 motor strength present throughout Sensory Exam: normal sensation Other: A&O x4 Extrem: General: normal to inspection Psych: Mental Status: mental status grossly normal Affect: normal affect Other: Good insight and judgment, very pleasant Objective Data Vital Signs Vital Signs: Vital Signs - 24 hr 02/24/25 08:00 02/24/25 10:06 02/24/25 14:06 Temperature 97.0 F L 98.0 F 98.8 F Pulse Rate 53 L 48 L 51 L Respiratory Rate 16 16 18 Blood Pressure 119/66 135/63 146/74 H Pulse Oximetry 100 99 99 Oxygen Delivery 02/24/25 16:00 02/24/25 18:06 02/24/25 22:22 Temperature 97.8 F 97.2 F L Pulse Rate 47 L 52 L Respiratory Rate 16 14 Blood Pressure 143/74 H 126/64 Pulse Oximetry 97 98 Oxygen Delivery Room Air 02/24/25 22:45 02/25/25 05:21 Temperature 97.9 F 97.0 F L Pulse Rate 46 L 50 L Respiratory Rate 16 16 Blood Pressure 131/54 L 127/66 Pulse Oximetry 98 98 Oxygen Delivery Intake/Output Intake/Output: Intake & Output 02/22/25 02/23/25 02/24/25 02/25/25 23:59 23:59 23:59 23:59 Intake Total 168 1607.6 Output Total 350 3775 700 Balance -182 -2167.4 -700 Meds/Results Medications: Active Medications Generic Name Dose Route Start Last Admin Trade Name Freq PRN Reason Stop Dose Admin Acetaminophen 650 mg 02/23/25 11:57 Acetaminophen 325 Mg Tablet PO Q4H PRN Mild Pain (1-3) or Fever Hydrocodone Bitart/Acetaminophen 1 tab 02/23/25 23:40 02/24/25 23:28 Hydrocodone/Acetaminophen (*Crx) 5-325 Mg Tablet PO 1 tab Q6H PRN Administration Pain Rated 4-6 Aspirin 81 mg 02/24/25 09:00 02/24/25 08:51 Aspirin 81 Mg Enteric Tablet PO 81 mg DAILY [facility] Administration Docusate Sodium 100 mg 02/23/25 13:25 Docusate Sodium 100 Mg Capsule PO BID PRN Constipation Docusate Sodium 100 mg 02/23/25 17:00 02/24/25 17:13 Docusate Sodium 100 Mg Capsule PO 100 mg BID [facility] Administration Escitalopram Oxalate 20 mg 02/24/25 09:00 02/24/25 08:51 Escitalopram Oxalate 10 Mg Tablet PO 20 mg DAILY [facility] Administration Heparin Sodium (Porcine) 5,000 units 02/23/25 21:00 02/24/25 22:22 Heparin Sodium 5,000 Units/Ml Vial SUB-Q 5,000 units Q12HR [facility] Administration Hyoscyamine 0.125 mg 02/23/25 16:21 02/25/25 05:57 Hyoscyamine Sulfate 0.125 Mg Tablet SUBLINGUAL 0.125 mg Q6H PRN Administration Bladder Spasm Ceftriaxone Sodium 1 gm/ 50 mls @ 100 mls/hr 02/24/25 12:00 02/24/25 11:19 Sodium Chloride IVPB 100 mls/hr Q24H [facility] Administration Dextrose/Lactated Ringer's 1,000 mls @ 125 mls/hr 02/23/25 16:25 02/24/25 17:17 Dextrose 5%/Lactated Ringers IV CONT Not Given .Q8H [facility] Morphine Sulfate 2 mg 02/23/25 16:21 02/25/25 05:55 Morphine Sulfate (*Crx) 4 Mg/Ml Inj IV PUSH 2 mg Q2H PRN Administration Pain Rated 7-10 Naloxone HCl 0.1 mg 02/23/25 16:21 Naloxone Hcl 0.4 Mg/Ml Vial IV PUSH Q2M PRN Opiate Reversal Simvastatin 40 mg 02/24/25 09:00 02/24/25 08:50 Simvastatin 20 Mg Tablet PO 40 mg DAILY [facility] Administration Radiology Results: ITS Impressions Abdomen/Pelvis CT 02/23/25 10:55 IMPRESSION: 1. Distended urinary bladder with consequent bilateral hydronephrosis. Quality VTE Prophylaxis VTE prophylaxis: mechanical ordered
[2025-02-25 08:10] LABS: Hematocrit 41.8 % (42.0-52.0); Hemoglobin 13.7 g/dL (14.0-18.0); Immature Granulocyte Percent A 0.4 % (0-0.5); Lymphocytes Absolute Auto 1.02 K/mm3 (0.9-3.2); Mean Corpuscular HGB Conc 32.8 g/dl (32-36); Mean Corpuscular Hemoglobin 29.8 pg (26-34); Mean Corpuscular Volume 90.9 fl (80-100); Nucleated Red Blood Cells Absolute Auto 0.000 K/mm3 (0.0-0.012); Nucleated Red Blood Cells Perc 0.0 % (0.0-0.2); Platelet Count Result 227 k/mm3 (150-375); Red Blood Count 4.60 M/mm3 (4.6-6.20); White Blood Count 6.9 K/mm3 (4.5-10.0)
[2025-02-25 08:34] LABS: Alanine Aminotransferase 15 U/L (6-50); Albumin Level 3.6 g/dL (3.5-5.1); Alkaline Phosphatase 50 U/L (38-126); Anion Gap 6 mmol/L (4-12); Aspartate Amino Transferase 21 U/L (17-59); Bilirubin,Total 0.8 mg/dL (0.2-1.3); Blood Urea Nitrogen 11 mg/dL (9-20); Calcium 8.5 mg/dL (8.4-10.2); Carbon Dioxide 28 mmol/L (22-30); Chloride 103 mmol/L (98-107); Estimated CRCL calculation 81 ml/min; Estimated Glomerular Filt Rate > 60; Glucose 96 mg/dL (65-110); Potassium 4.1 mmol/L (3.4-5.0); Sodium 137 mmol/L (137-145); Total Protein 6.4 g/dL (6.3-8.2)
[2025-02-25] MEDS: ASPIRIN 81 MG ENTERIC TABLET PO (08:51)
[2025-02-25] MEDS: DOCUSATE SODIUM 100 MG CAPSULE PO ×2 (08:51→17:40)
[2025-02-25] MEDS: ESCITALOPRAM OXALATE 10 MG TABLET 20 MG PO (08:51)
[2025-02-25] MEDS: SIMVASTATIN 20 MG TABLET 40 MG PO (08:51)
--- NOTE | 2025-02-25 08:51 | P.PNUR_ITS ---
Progress Note: A&P Assessment and Plan (1) Bladder neck contracture: Code(s): N32.0 - Bladder-neck obstruction Status: Acute Assessment and Plan: - S/p dilation in the OR 02/23 - [place] Willson catheter on discharge; to keep in place 1-2 weeks and attempt outpatient void trial (2) Urinary tract infection: Qualifiers: Hematuria presence: without hematuria Urinary tract infection type: acute cystitis Qualified Code(s): N30.00 - Acute cystitis without hematuria Code(s): N39.0 - Urinary tract infection, site not specified Status: Acute Assessment and Plan: - UCx pending - Continue broad spectrum Abx; tailor to susceptibility profile once available Plan Once UCx is resulted pt OK for discharge from Urology standpoint. Will follow peripherally until this time. Subjective Subjective Date/Time Seen: 02/25/25 08:51 Interval history: NAEO; resting comfortably in bed with Willson catheter draining clear, yellow urine. Exam Const: General: comfortable and no acute distress Eyes: General: appearance normal, both eyes and all related structures Resp: Effort & Inspection: normal respiratory effort Urinary Catheter: Urinary Catheter: patent and draining and urine clear Neuro: Speech: normal speech Extrem: General: normal to inspection Psych: Mental Status: mental status grossly normal Objective Data Vital Signs Vital Signs: Vital Signs - 24 hr 02/24/25 10:06 02/24/25 14:06 02/24/25 16:00 Temperature 36.7 C 37.1 C 36.6 C Pulse Rate 48 L 51 L 47 L Respiratory Rate 16 18 16 Blood Pressure 135/63 146/74 H 143/74 H Pulse Oximetry 99 99 97 Oxygen Delivery 02/24/25 18:06 02/24/25 22:22 02/24/25 22:45 Temperature 36.2 C L 36.6 C Pulse Rate 52 L 46 L Respiratory Rate 14 16 Blood Pressure 126/64 131/54 L Pulse Oximetry 98 98 Oxygen Delivery Room Air 02/25/25 05:21 Temperature 36.1 C L Pulse Rate 50 L Respiratory Rate 16 Blood Pressure 127/66 Pulse Oximetry 98 Oxygen Delivery Intake/Output Intake/Output: Intake & Output 02/22/25 02/23/25 02/24/25 02/25/25 23:59 23:59 23:59 23:59 Intake Total 168 1607.6 Output Total 350 3775 700 Balance -182 -2167.4 -700 Meds/Results Medications: Active Medications Generic Name Dose Route Start Last Admin Trade Name Freq PRN Reason Stop Dose Admin Acetaminophen 650 mg 02/23/25 11:57 Acetaminophen 325 Mg Tablet PO Q4H PRN Mild Pain (1-3) or Fever Hydrocodone Bitart/Acetaminophen 1 tab 02/23/25 23:40 02/24/25 23:28 Hydrocodone/Acetaminophen (*Crx) 5-325 Mg Tablet PO 1 tab Q6H PRN Administration Pain Rated 4-6 Aspirin 81 mg 02/24/25 09:00 02/24/25 08:51 Aspirin 81 Mg Enteric Tablet PO 81 mg DAILY CHRISTIAN Administration Docusate Sodium 100 mg 02/23/25 13:25 Docusate Sodium 100 Mg Capsule PO BID PRN Constipation Docusate Sodium 100 mg 02/23/25 17:00 02/24/25 17:13 Docusate Sodium 100 Mg Capsule PO 100 mg BID CHRISTIAN Administration Escitalopram Oxalate 20 mg 02/24/25 09:00 02/24/25 08:51 Escitalopram Oxalate 10 Mg Tablet PO 20 mg DAILY CHRISTIAN Administration Heparin Sodium (Porcine) 5,000 units 02/23/25 21:00 02/24/25 22:22 Heparin Sodium 5,000 Units/Ml Vial SUB-Q 5,000 units Q12HR CHRISTIAN Administration Hyoscyamine 0.125 mg 02/23/25 16:21 02/25/25 05:57 Hyoscyamine Sulfate 0.125 Mg Tablet SUBLINGUAL 0.125 mg Q6H PRN Administration Bladder Spasm Ceftriaxone Sodium 1 gm/ 50 mls @ 100 mls/hr 02/24/25 12:00 02/24/25 11:19 Sodium Chloride IVPB 100 mls/hr Q24H CHRISTIAN Administration Morphine Sulfate 2 mg 02/23/25 16:21 02/25/25 05:55 Morphine Sulfate (*Crx) 4 Mg/Ml Inj IV PUSH 2 mg Q2H PRN Administration Pain Rated 7-10 Naloxone HCl 0.1 mg 02/23/25 16:21 Naloxone Hcl 0.4 Mg/Ml Vial IV PUSH Q2M PRN Opiate Reversal Simvastatin 40 mg 02/24/25 09:00 02/24/25 08:50 Simvastatin 20 Mg Tablet PO 40 mg DAILY CHRISTIAN Administration Radiology Results: ITS Impressions Abdomen/Pelvis CT 02/23/25 10:55 IMPRESSION: 1. Distended urinary bladder with consequent bilateral hydronephrosis. Labs Labs: Laboratory Results - last 24 hr 02/25/25 08:05 WBC 6.9 RBC 4.60 Hgb 13.7 L Hct 41.8 L MCV 90.9 MCH 29.8 MCHC 32.8 RDW 12.7 Plt Count 227 MPV 9.3 Immature Gran % (Auto) 0.4 Neut % (Auto) 71.8 Lymph % (Auto) 14.8 L [place] % (Auto) 10.1 H Eos % (Auto) 2.5 Baso % (Auto) 0.4 Lymph # (Auto) 1.02 [place] # (Auto) 0.7 H Eos # (Auto) 0.2 Baso # (Auto) 0.0 Abs Immat Gran (auto) 0.03 Absolute Neuts (auto) 5.0 Absolute Nucleated RBC 0.000 Nucleated RBC % 0.0 Sodium 137 Potassium 4.1 Chloride 103 Carbon Dioxide 28 Anion Gap 6 BUN 11 Creatinine 0.95 Estim Creat Clear Calc 81 Estimated GFR > 60 Glucose 96 Calcium 8.5 Total Bilirubin 0.8 AST 21 ALT 15 Alkaline Phosphatase 50 Total Protein 6.4 Albumin 3.6
[2025-02-25] MEDS: HYDROcodone/acetaminophen (*CRX) 5-325 MG TABLET 1 TAB PO ×2 (09:04→17:42)
[2025-02-25] MEDS: cefTRIAXone 1 GM in SODIUM CHLORIDE 0.9% IV 50 ML 100 ML IVPB (11:30)
[2025-02-25 15:44] VITALS: BP 121/59; PULSE 44; RESP 16; TEMP 36.2; O2SAT 97
[2025-02-25 20:47] VITALS: PULSE 42; RESP 20; O2SAT 98
[2025-02-25 20:48] VITALS: PULSE 42; RESP 24; O2SAT 98
[2025-02-26 00:15] VITALS: BP 147/75; PULSE 56; RESP 18; TEMP 36.2; O2SAT 98
[2025-02-26 05:54] LABS: Hematocrit 41.4 % (42.0-52.0); Hemoglobin 13.5 g/dL (14.0-18.0); Immature Granulocyte Percent A 0.3 % (0-0.5); Lymphocytes Absolute Auto 0.82 K/mm3 (0.9-3.2); Mean Corpuscular HGB Conc 32.6 g/dl (32-36); Mean Corpuscular Hemoglobin 29.7 pg (26-34); Mean Corpuscular Volume 91.0 fl (80-100); Nucleated Red Blood Cells Absolute Auto 0.000 K/mm3 (0.0-0.012); Nucleated Red Blood Cells Perc 0.0 % (0.0-0.2); Platelet Count Result 265 k/mm3 (150-375); Red Blood Count 4.55 M/mm3 (4.6-6.20); White Blood Count 5.9 K/mm3 (4.5-10.0)
[2025-02-26 06:17] LABS: Alanine Aminotransferase 12 U/L (6-50); Albumin Level 3.5 g/dL (3.5-5.1); Alkaline Phosphatase 51 U/L (38-126); Anion Gap 5 mmol/L (4-12); Aspartate Amino Transferase 19 U/L (17-59); Bilirubin,Total 0.7 mg/dL (0.2-1.3); Blood Urea Nitrogen 15 mg/dL (9-20); Calcium 8.6 mg/dL (8.4-10.2); Carbon Dioxide 29 mmol/L (22-30); Chloride 102 mmol/L (98-107); Estimated CRCL calculation 81 ml/min; Estimated Glomerular Filt Rate > 60; Glucose 94 mg/dL (65-110); Potassium 4.4 mmol/L (3.4-5.0); Sodium 136 mmol/L (137-145); Total Protein 6.4 g/dL (6.3-8.2)
[2025-02-26 06:19] VITALS: BP 123/62; PULSE 41; RESP 18; TEMP 36.6; O2SAT 98
[2025-02-26] MEDS: HYDROcodone/acetaminophen (*CRX) 5-325 MG TABLET 1 TAB PO ×2 (08:22→14:02)
[2025-02-26] MEDS: DOCUSATE SODIUM 100 MG CAPSULE PO (08:22)
[2025-02-26] MEDS: ESCITALOPRAM OXALATE 10 MG TABLET 20 MG PO (08:23)
[2025-02-26] MEDS: SIMVASTATIN 20 MG TABLET 40 MG PO (08:23)
[2025-02-26] MEDS: ASPIRIN 81 MG ENTERIC TABLET PO (08:23)
--- NOTE | 2025-02-26 10:34 | P.DS_ITS ---
DS: Admitting Diagnosis Discharge Date 02/26/25 Admitting Diagnosis Obstructed uropathy, UTI DS: Discharge Diagnosis Discharge Diagnosis (1) Urinary tract infection: Qualifiers: Hematuria presence: without hematuria Urinary tract infection type: acute cystitis Qualified Code(s): N30.00 - Acute cystitis without hematuria Code(s): N39.0 - Urinary tract infection, site not specified Status: Acute Assessment and Plan: * Diagnosed with a bladder infection on (02/21). UC at that time positive for e. coli. * Originally placed on Macrobid PO, has taken 3 doses without improvement in symptoms. * CT abdomen/pelvis: distended urinary bladder with consequent bilateral hydronephrosis, see below. * UA: Turbid, 1+ protein, 2+ blood, positive nitrates, 3+ leuk esterase, 3-5 RBC, greater than 100 WBC, moderate epithelial cells, 1+ bacteria * obtain urine culture results from to review sensitivities, positive for E coli * no previous micro available for review * started on Ceftriaxone IV on 02/23, continued inpatient (2) Obstructed, uropathy: Code(s): N13.9 - Obstructive and reflux uropathy, unspecified Status: Acute Assessment and Plan: Bladder noted to be distended on CT from 02/23. +UTI, likely culprit for new retention however does have history complicated by prostate cancer for which he has previously underwent surgery and radiation. * place Finch, difficulty placing in the ED despite multiple RN attempts. ED reached out to Urology for placement >> consulted attempted in the ED, unable to place. Was placed in the OR during cystoscopy. * monitor I&Os * urology consulted, see note * IV fluids: LR 100 mL/hr * start Flomax (3) HORTENCIA (acute kidney injury): Code(s): N17.9 - Acute kidney failure, unspecified Status: Acute Assessment and Plan: No previous history of renal dysfunction or CKD. Creatinine 1.38, GFR 53, BUN 13. Very mild HORTENCIA. Likely related to acute urinary retention. Suspect mild elevation will resolve with placement of Finch and IV fluids. * Finch to be placed by Urology * IV fluids * trend renal function and electrolytes, correct electrolytes as needed * Resolved Plan Diet: regular GI Prophylaxis: n/a DVT Prophylaxis: SCDs IV fluids: LR 100 mL/hr Lines/Tubes: pIV, Finch Code Status: full code DS: Summary Hospital Course Reason for hospitalization: Urinary Urgency and Frequency Hospital Course: The patient is a 54-year-old male with a history of prostate cancer status post prostatectomy (2020) and radiation therapy (2022), hyperlipidemia, and anxiety/depression who presented on 02/23/25 with urinary urgency, frequency, dysuria, and difficulty voiding despite outpatient antibiotics for a culture- proven?E. coli?urinary tract infection. Initial evaluation demonstrated a distended urinary bladder with bilateral hydronephrosis on CT imaging and a mild acute kidney injury, felt to be secondary to acute urinary retention. Multiple attempts at Finch catheter placement in the ED were unsuccessful, prompting Urology consultation. The patient was taken to the operating room on 02/23/25 for cystoscopy under general anesthesia, which revealed a dense bladder neck contracture. The contracture was successfully dilated, and an 18F [place]-tip Finch catheter was placed without complication. Postoperatively, the patient?s urinary output improved with resolution of back pain and normalization of renal function. He was treated with IV ceftriaxone for acute cystitis with plans to tailor antibiotics based on urine culture results. The patient remained hemodynamically stable throughout hospitalization, tolerated the procedure well, and had an uncomplicated postoperative course. From a urologic standpoint, he was deemed appropriate for discharge with the Finch catheter to remain in place for 1?2 weeks and outpatient follow-up for a voiding trial. Plan to discharge the patient on Augmentin for 7 day course. Patient is otherwise hemodynamically stable and can be discharged home at this time. Status at Discharge Functional status at discharge: independent ambulation Overall status at discharge: patient is back to baseline Time Spent with Patient Time attestation: Total time spent providing and/or coordinating discharge services: 31 Exam Narrative: finch, suprapubic/lower abdominal pain with palpation. Const: General: no acute distress Other: , male, nontoxic appearance, visibly uncomfortable HENMT: Face/Nose/Sinus: Normal nares present Eyes: General: appearance normal, both eyes and all related structures Sclera: sclerae normal Pupils: Equal, round and reactive pupils present EOM: EOMs intact bilaterally Resp: Effort & Inspection: normal respiratory effort Auscultation: clear to auscultation bilaterally Cardio: Rate: regular rate Rhythm: regular rhythm Other: S1-S2 present without murmur, rub, ectopy GI: Other: Abdomen soft, nondistended, nontender. Normoactive bowel sounds in all quadrants. Urinary Catheter: Urinary Catheter: patent and draining Skin: General skin exam: normal color and no rashes or lesions noted Wounds: no wounds Neuro: Cranial nerves: Yes Equal, round and reactive pupils present Speech: normal speech Motor exam (neuro): 5/5 motor strength present throughout Sensory Exam: normal sensation Other: A&O x4 Extrem: General: normal to inspection Psych: Mental Status: mental status grossly normal Affect: normal affect Other: Good insight and judgment, very pleasant DS: Data Data Completed and Pending Labs on day of discharge: Labs from last 24 hours 02/26/25 05:16 WBC 5.9 RBC 4.55 L Hgb 13.5 L Hct 41.4 L MCV 91.0 MCH 29.7 MCHC 32.6 RDW 12.6 Plt Count 265 MPV 9.9 Immature Gran % (Auto) 0.3 Neut % (Auto) 69.4 Lymph % (Auto) 13.9 L [place] % (Auto) 10.3 H Eos % (Auto) 5.3 H Baso % (Auto) 0.8 Lymph # (Auto) 0.82 L [place] # (Auto) 0.6 Eos # (Auto) 0.3 Baso # (Auto) 0.1 Abs Immat Gran (auto) 0.02 Absolute Neuts (auto) 4.1 Absolute Nucleated RBC 0.000 Nucleated RBC % 0.0 Sodium 136 L Potassium 4.4 Chloride 102 Carbon Dioxide 29 Anion Gap 5 BUN 15 Creatinine 0.95 Estim Creat Clear Calc 81 Estimated GFR > 60 Glucose 94 Calcium 8.6 Total Bilirubin 0.7 AST 19 ALT 12 Alkaline Phosphatase 51 Total Protein 6.4 Albumin 3.5 Discharge Plan Discharge Attending physician on discharge: Neptali Porras Consulting providers: Ted Ag; Baldo Voss Discharging Clinician: Baldo Voss Anticipated Discharge Date/Time: 02/26/25 10:32 Patient Disposition: Home Activity: as tolerated Diet: regular Discharge Instructions: Discharge disposition: Home Take medications as prescribed. You will be prescribed Augmentin for a total of 7 days. Take this medication twice daily for the entire course. Monitor blood pressures Take caution while standing, rising, or moving Change positions slowly taking a break between each position change If you standing feel dizzy sit back down and take a break Encouraged to continue with yearly vaccinations Return to the emergency department if you develop sudden shortness of breath, chest pain, nausea, vomiting, upset stomach or intractable diarrhea Return to the emergency department if you develop fever greater than 101.5 Follow-up with the primary care physician within 1-2 weeks Follow-up with urology in 1-2 weeks. Thank you for choosing [facility] for your healthcare needs Patient Instructions: Antibiotic Form Patient Language: Irish Stand Alone Forms: General Discharge Information Follow-up/Referrals: Ermias Hairston PA [Physician Web Developer Programmer, Urology] - 2 Weeks Referral Note: Void trial Discharge Medications: New amoxicillin-pot clavulanate 875-125 mg tablet 1 tablet PO Q12H Qty: 14 0RF Continued tadalafil [Cialis] 5 mg tablet 5 mg PO DAILY tadalafil [Cialis] 10 mg tablet 10 mg PO DAILY PRN (Reason: sexual activity) Rx Instructions: administer approximately 30min before sexual activity; do not use more than 1 dose per 24hrs simvastatin 40 mg tablet 40 mg PO DAILY escitalopram oxalate 20 mg tablet 20 mg PO DAILY aspirin [Adult Aspirin Regimen] 81 mg tablet,delayed release (DR/EC) 81 mg PO DAILY Date of admission: 02/23/25 13:30 Primary Care Provider: Vinicio Malhotra Admitting Provider: Kevin Quan Attending physician on admission: Kevin Quan Condition: Stable Quality VTE Prophylaxis VTE prophylaxis: mechanical ordered
[2025-02-26] MEDS: cefTRIAXone 1 GM in SODIUM CHLORIDE 0.9% IV 50 ML 100 ML IVPB (11:36)
== END 2025-02-26 14:05 | disposition home or self-care (01) | DRG 690 ==
LOC: ANHED 11:29 → ANH3MEDSUR 12:39
PROVIDERS: Physician Assistant; Student in an Organized Health Care Education/Training Program; Urology; Admitting Provider Internal Medicine; Emergency Provider Emergency Medicine; PCP Physician Assistant; Visit Provider Internal Medicine
PROC: 0T7D8ZZ Dilation of Urethra, Via Natural or Artificial Opening Endoscopic (ICD-10-PCS; CPT 52281; principal; 2025-02-23 16:00)
DX: N13.6 Pyonephrosis (principal); N17.9 Acute kidney failure, unspecified; B96.20 Unspecified Escherichia coli [E. coli] as the cause of diseases classified elsewhere; N13.9 Obstructive and reflux uropathy, unspecified; R33.9 Retention of urine, unspecified; R35.0 Frequency of micturition; R39.15 Urgency of urination; E78.5 Hyperlipidemia, unspecified; F41.8 Other specified anxiety disorders; Z85.46 Personal history of malignant neoplasm of prostate; Z79.82 Long term (current) use of aspirin
CPT/HCPCS: 36415; 74176; 80048; 80053; 81001; 83690; 85025; 87086; 96365; 99285; A9270; C1726; C1758; C1769; G0378; J0696; J1200; J1644; J2270; J2704; J3010; J7120; J7121